=== PATIENT | male | born 1980 | race Caucasian/White ===

== ENCOUNTER → 2016-02-25 | Outpatient (CLI) | payer MEDICARE, OTHER ==
--- NOTE | 2016-02-25 21:28 | MR ---
EXAMINATION TYPE: MR cervical spine wo con DATE OF EXAM: 02/25/2016 6:41 PM COMPARISON: 05/02/2014 HISTORY: Pain T1 sagittal and coronal, T2 sagittal, and gradient echo axial views of the cervical spine are submitt ed. The cranial cervical junction is preserved. There is no abnormal signal seen within the spinal cord or paraspinal soft tissues. Changes of chronic sinusitis noted. At C2-3 there is no disc herniation or canal stenosis. No foraminal encroachment. At C3-4 there is no disc herniation or canal stenosis. No foraminal encroachment. Very mild left-side d uncovertebral joint hypertrophy. At C4-5 there is mild bilateral uncovertebral joint hypertrophy with no foraminal encroachment. No di sc herniation or canal stenosis. At C5-6 there is no degenerative disc disease or disc herniation. No canal stenosis or foraminal encr oachment. At C6-7 there is broad-based central and left paracentral disc bulging with very mild effacement of t hecal sac but no canal stenosis. No foraminal encroachment. At C7-T1 there is no disc herniation or canal stenosis. No foraminal encroachment IMPRESSION: 1. At C6-7 there is broad-based central and left paracentral disc bulging with very mild effacement of thecal sac but no canal stenosis. No foraminal encroachment. EXAMINATION TYPE: MR cspine/lspine wo con DATE OF EXAM: 02/25/2016 6:41 PM COMPARISON: NONE HISTORY: Pain TECHNIQUE: T1 and T2 axial and sagittal images of the lumbar spine are submitted. FINDINGS: There is no abnormal signal seen within the visualized spinal cord or paraspinal soft tissu es. At L1-2 there is no disc herniation or canal stenosis. No degenerative disc disease or foraminal encr oachment. At L2-3 there is no disc herniation or canal stenosis. No foraminal encroachment. At L3-4 there is right lateral disc bulging with mild to moderate right-sided foraminal encroachment. Mild hypertrophic change of the facets. At L4-5 there is no disc herniation or canal stenosis. No foraminal encroachment.. Mild facet arthrop athy. At L5-S1 there is no disc herniation or canal stenosis. No foraminal encroachment. Mild facet arthrop athy seen.. IMPRESSION: 1. At L3-4 there is right lateral disc bulging with mild to moderate right-sided foraminal encroachme nt. Correlate for right-sided radiculopathy at this level.
--- NOTE | 2016-02-25 21:28 | MR ---
EXAMINATION TYPE: MR brain wo con DATE OF EXAM: 02/25/2016 6:08 PM COMPARISON: CT brain 05/02/2014, MRI brain 11/14/2012 HISTORY: Headaches T1-weighted sagittal, T2, FLAIR, and diffusion axial, and T2 coronal coronal views of the brain are s ubmitted. There is no evidence of acute ischemia. The ventricles, basal cisterns, and sulci overlying the conv exities are consistent with the patient's age. There is no mass effect. Craniocervical junction maintained. Sella turcica has a normal appearance. No evidence to suggest cer ebellopontine angle mass. There is severe changes of ethmoidal and maxillary chronic sinusitis. Previously noted sebaceous cyst overlying the left facial structures no longer identified. There are 2 focal areas of abnormal signal within the white matter measuring less than 5 mm. No callo sabrina lesions. No lesions perpendicular to the ventricular system. Findings of doubtful significance. IMPRESSION: 1. No acute intracranial process. 2. Severe maxillary and ethmoidal chronic sinusitis.
== END | disposition home or self-care (01) ==
LOC: RADMRIMAIN 17:29
PROVIDERS: ATTEND Nurse Practitioner Acute Care
DX: M50.223 Other cervical disc displacement at C6-C7 level (principal); M51.26 Other intervertebral disc displacement, lumbar region; J32.0 Chronic maxillary sinusitis; J32.2 Chronic ethmoidal sinusitis
CPT/HCPCS: 70551; 72141; 72148

== ENCOUNTER → 2017-05-09 | Outpatient (CLI) | payer MEDICARE, OTHER ==
--- NOTE | 2017-05-09 23:14 | MR ---
EXAMINATION TYPE: MR brain wo con DATE OF EXAM: 05/09/2017 COMPARISON: 02/25/2016 HISTORY: Prior on synapse, migraines and dizziness Standard multiplanar, multisequence MRI departmental protocol Multiplanar, multisequence images of the brain were acquired. Diffusion weighted imaging was performe d. FINDINGS: Ventricles and sulci appear normal. There is no mass effect nor midline shift. There is no sign of intracranial hemorrhage. There is mild mucosal thickening in the maxillary and ethmoid sinuse s. Artis-white matter structures have normal signal pattern. There is no evidence of cerebral edema. T here is no sign of a cortical infarct. Brainstem appears normal. Corpus callosum is normal. Sella tur cica is normal. IMPRESSION: Normal MRI scan of the brain. There is significant improvement in the maxillary and ethmoid sinusitis compared to old exam.
== END | disposition home or self-care (01) ==
LOC: RADMRIMAIN 21:04
PROVIDERS: ATTEND Psychiatry & Neurology Neurology
DX: R51 Headache (principal); R90.82 White matter disease, unspecified
CPT/HCPCS: 70551

== ENCOUNTER 2018-05-16 14:14 | Emergency (ER) | payer MEDICARE, OTHER ==
[2018-05-16 14:18] VITALS: RESP 18
[2018-05-16 16:32] LABS: Amphetamine Screen,Urine Not Detected (NotDetected); Cocaine Screen,Urine Not Detected (NotDetected); Opiate Screen,Urine Not Detected (NotDetected); Phencyclidine Screen,Urine Not Detected (NotDetected); Urn Cannabinoid Scrn Detected (NotDetected)
[2018-05-16 16:33] LABS: Barbiturate Screen,Urine Not Detected (NotDetected); Benzodiazepines Screen,Urine Detected (NotDetected); Methadone Screen, Urine Not Detected (NotDetected); Oxycodone Screen, Urine Not Detected (NotDetected); Tricyclic Antidepressant,Urine Not Detected (NotDetected)
--- NOTE | 2018-05-16 16:44 | ED ---
General Adult HPI - General Chief complaint: Psychiatric Symptoms Stated complaint: mental health Time Seen by Provider: 05/16/18 14:35 Source: patient Mode of arrival: ambulatory Limitations: no limitations - History of Present Illness Initial comments: 37-year-old male presents to the emergency department for a chief complaint of depression. Patient states his left him about one month ago and he has had difficulty dealing with this. Patient states he has been depressed since that time. He is denying any suicidal thoughts. Patient states he would like to be admitted to [facility]. Patient has no other complaints at this time including shortness of breath, chest pain, abdominal pain, nausea or vomiting, headache, or visual changes. - Related Data Home Medications Medication Instructions Recorded Confirmed SUMAtriptan SUCCINATE [Imitrex] 100 mg PO DAILY PRN 06/19/13 05/16/18 ARIPiprazole [Abilify] 15 mg PO DAILY 05/16/18 05/16/18 Divalproex ER [Depakote ER] 500 mg PO BID 05/16/18 05/16/18 Divalproex Sodium [Depakote ER] 250 mg PO HS 05/16/18 05/16/18 Galcanezumab-Gnlm [Emgality] 120 mg SQ Q30D 05/16/18 05/16/18 LORazepam [Ativan] 1 mg PO TID PRN 05/16/18 05/16/18 Mirtazapine [Remeron] 30 mg PO HS 05/16/18 05/16/18 Naproxen 500 mg PO BID PRN 05/16/18 05/16/18 Zonisamide [Zonegran] 200 mg PO HS 05/16/18 05/16/18 cloNIDine HCL [Catapres] 0.2 mg PO HS 05/16/18 05/16/18 Allergies Allergy/AdvReac Type Severity Reaction Status Date / Time No Known Allergies Allergy Verified 05/16/18 14:18 Review of Systems ROS Statement: Those systems with pertinent positive or pertinent negative responses have been documented in the HPI. ROS Other: All systems not noted in ROS Statement are negative. Past Medical History Past Medical History: Hyperlipidemia, Hypertension Additional Past Medical History / Comment(s): migraine, bipolar disorder History of Any Multi-Drug Resistant Organisms: None Reported Additional Past Surgical History / Comment(s): TRAUMA TO THROAT, REPAIR COMPLETED Past Psychological History: Anxiety, Bipolar Smoking Status: Current every day smoker Past Alcohol Use History: None Reported Past Drug Use History: Marijuana General Exam Limitations: no limitations General appearance: alert, in no apparent distress (Tearful) Head exam: Present: atraumatic, normocephalic, normal inspection Eye exam: Present: normal appearance, PERRL, EOMI. Absent: scleral icterus, conjunctival injection, periorbital swelling ENT exam: Present: normal exam, mucous membranes moist Neck exam: Present: normal inspection, full ROM. Absent: tenderness, meningismus, lymphadenopathy Respiratory exam: Present: normal lung sounds bilaterally. Absent: respiratory distress, wheezes, rales, rhonchi, stridor Cardiovascular Exam: Present: regular rate, normal rhythm, normal heart sounds. Absent: bradycardia, tachycardia, irregular rhythm GI/Abdominal exam: Present: soft, normal bowel sounds. Absent: distended, tenderness, guarding, rebound, rigid Neurological exam: Present: alert, oriented X3, CN II-XII intact Psychiatric exam: Present: normal affect, normal mood. Absent: homicidal ideation, suicidal ideation Course Vital Signs 05/16/18 14:15 Temperature 98.5 F Pulse Rate 90 Respiratory 18 Rate Blood Pressure 151/93 O2 Sat by Pulse 98 Oximetry Medical Decision Making - Medical Decision Making 37-year-old male with past medical history of bipolar disorder, depression presents to the emergency department for depression. Patient states his left him last month. He is denying any suicidal thoughts. EPS did see patient and recommend outpatient therapy. Patient did just see his therapist yesterday. States he can see her another time this week as well. Patient reevaluated, feeling much better, sitting up and smiling. Requesting discharge. Patient again denying suicidal thoughts at discharge. Patient will be discharged home. He will return here if he has any worsening symptoms. Resources were given to him by EPS. - Lab Data Lab Results 05/16/18 Range/Units 16:05 Urine Opiates Screen Not Detected (NotDetected) Ur Oxycodone Screen Not Detected (NotDetected) Urine Methadone Screen Not Detected (NotDetected) Ur Propoxyphene Screen Not Detected (NotDetected) Ur Barbiturates Screen Not Detected (NotDetected) U Tricyclic Antidepress Not Detected (NotDetected) Ur Phencyclidine Scrn Not Detected (NotDetected) Ur Amphetamines Screen Not Detected (NotDetected) U Methamphetamines Scrn Not Detected (NotDetected) U Benzodiazepines Scrn Detected H (NotDetected) Urine Cocaine Screen Not Detected (NotDetected) U Marijuana (THC) Screen Detected H (NotDetected) Disposition Clinical Impression: Adjustment reaction, Depression Disposition: HOME SELF-CARE Condition: Good Instructions (If sedation given, give patient instructions): Depression (ED) Additional Instructions: Please follow-up with your therapist as well as primary care tomorrow. please return here to the emergency department if you have any worsening symptoms. Is patient prescribed a controlled substance at d/c from ED?: No Referrals: Shagufta Aaron MD [Primary Care Provider] - 1-2 days Time of Disposition: 20:11
[2018-05-16 20:30] VITALS: BP 122/76; PULSE 72; TEMP 98
== END 2018-05-16 20:30 | disposition home or self-care (01) ==
LOC: EC 14:14
DX: F43.21 Adjustment disorder with depressed mood (principal); F31.9 Bipolar disorder, unspecified; I10 Essential (primary) hypertension; F41.9 Anxiety disorder, unspecified; F17.200 Nicotine dependence, unspecified, uncomplicated; Z79.899 Other long term (current) drug therapy; Z86.69 Personal history of other diseases of the nervous system and sense organs
CPT/HCPCS: 80306; 99284

== ENCOUNTER 2018-06-03 12:56 | Inpatient (IN) | payer MEDICARE, MEDICAID ==
[2018-06-03 14:21] LABS: Amphetamine Screen,Urine Not Detected (NotDetected); Barbiturate Screen,Urine Not Detected (NotDetected); Benzodiazepines Screen,Urine Detected (NotDetected); Cocaine Screen,Urine Not Detected (NotDetected); Methadone Screen, Urine Not Detected (NotDetected); Opiate Screen,Urine Not Detected (NotDetected); Oxycodone Screen, Urine Not Detected (NotDetected); Phencyclidine Screen,Urine Not Detected (NotDetected); Tricyclic Antidepressant,Urine Not Detected (NotDetected); Urn Cannabinoid Scrn Detected (NotDetected)
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
[2018-06-03] MEDS ORDERED: ZIPRASIDONE 20 MG VIAL IM PRN (17:17)
[2018-06-03] MEDS ORDERED: MAGNESIUM HYDROXIDE 2,400 MG/10 ML CUP PO PRN (17:17)
[2018-06-03] MEDS ORDERED: ACETAMINOPHEN TAB 325 MG TAB PO PRN (17:17)
[2018-06-03] MEDS ORDERED: MAG HYDROX/AL HYDROX/SIMETH 30 ML CUP PO PRN (17:17)
[2018-06-03] MEDS: NICOTINE 14MG/24HR PATCH TRANSDERM SCH (17:54)
[2018-06-03] MEDS ORDERED: cloNIDine HCL 0.2 MG TAB PO SCH (21:00)
[2018-06-03] MEDS: ZONISAMIDE 100 MG CAP PO SCH (21:09)
[2018-06-03] MEDS: DIVALPROEX ER 250 MG TAB.ER.24H PO SCH (21:10)
[2018-06-03] MEDS: MIRTAZAPINE 45 MG TABLET PO SCH (21:10)
[2018-06-03] MEDS: DIVALPROEX ER 500 MG TAB.ER.24H PO SCH (21:10)
[2018-06-04] MEDS: DIVALPROEX ER 500 MG TAB.ER.24H PO SCH ×2 (08:49→20:55)
[2018-06-04] MEDS: NICOTINE 14MG/24HR PATCH TRANSDERM SCH (08:50)
[2018-06-04 11:23] LABS: Basophils % (A) 1 %; Eosinophils # (A) 0.1 k/uL (0-0.7); Eosinophils % (A) 1 %; HCT 43.9 % (39.0-53.0); HGB 14.3 gm/dL (13.0-17.5); Lymphocytes # (A) 1.5 k/uL (1.0-4.8); Lymphocytes % (A) 17 %; MCH 29.1 pg (25.0-35.0); MCHC 32.5 g/dL (31.0-37.0); MCV 89.6 fL (80.0-100.0); Mean Platelet Volume 8.3; Monocytes # (A) 0.4 k/uL (0-1.0); Monocytes % (A) 5 %; Neutrophils # (A) 6.8 k/uL (1.3-7.7); Neutrophils % (A) 77 %; Platelet Count 255 k/uL (150-450); WBC 8.9 k/uL (3.8-10.6)
[2018-06-04 11:32] LABS: ALT 21 U/L (21-72); AST 17 U/L (17-59); Albumin 4.9 g/dL (3.5-5.0); Alkaline Phosphatase 43 U/L (38-126); Anion Gap 11 mmol/L; Blood Urea Nitrogen 22 mg/dL (9-20); Carbon Dioxide 21 mmol/L (22-30); Chloride 112 mmol/L (98-107); Cholesterol 138 mg/dL (<200); Glucose 86 mg/dL (74-99); HDL Cholesterol 33 mg/dL (40-60); LDL Cholesterol,Calculated 86 mg/dL (0-99); Potassium 4.5 mmol/L (3.5-5.1); Sodium 144 mmol/L (137-145); Total Bilirubin 0.6 mg/dL (0.2-1.3); Total Protein 7.4 g/dL (6.3-8.2); Triglycerides 97 mg/dL (<150)
[2018-06-04 11:37] LABS: Valproic Acid (Depakene) 56.1 ug/mL
[2018-06-04 12:26] VITALS: BMI 22.8
--- NOTE | 2018-06-04 14:50 | P.CONS ---
History of Present Illness - Reason for Consult Recommendations regarding antihypertensive medications - History of Present Illness 37-year-old is admitted to psychiatric floor because of suicidal ideation and was depressed. Patient denied any fever chills nausea vomiting abdominal pain dysuria cough runny nose diarrhea. Patient denies any medical problems although as per the history patient has history of hypertension and is on clonidine at nighttime which will be discontinued and will be monitored, as per the chart patient also has history of hyperlipidemia but his LDL is 86. Review of Systems REVIEW OF SYSTEMS: CONSTITUTIONAL: No fever, no malaise, no fatigue. HEENT: No recent visual problems or hearing problems. Denied any sore throat. CARDIOVASCULAR: No chest pain, orthopnea, PND, no palpitations, no syncope. PULMONARY: No shortness of breath, no cough, no hemoptysis. GASTROINTESTINAL: No diarrhea, no nausea, no vomiting, no abdominal pain. NEUROLOGICAL: No headaches, no weakness, no numbness. HEMATOLOGICAL: Denies any bleeding or petechiae. GENITOURINARY: Denies any burning micturition, frequency, or urgency. MUSCULOSKELETAL/RHEUMATOLOGICAL: Denies any joint pain, swelling, or any muscle pain. ENDOCRINE: Denies any polyuria or polydipsia. The rest of the 14-point review of systems is negative. Past Medical History Past Medical History: Hyperlipidemia, Hypertension Additional Past Medical History / Comment(s): migraine History of Any Multi-Drug Resistant Organisms: None Reported Additional Past Surgical History / Comment(s): TRAUMA TO THROAT, REPAIR COMPLETED Past Psychological History: Anxiety, Bipolar Smoking Status: Current every day smoker Past Alcohol Use History: None Reported Past Drug Use History: Marijuana Additional Drug Use History / Comment(s): marijuana currently, a few times a week Medications and Allergies Home Medications Medication Instructions Recorded Confirmed Type Divalproex ER [Depakote ER] 500 mg PO BID 05/16/18 06/03/18 History Divalproex Sodium [Depakote ER] 250 mg PO HS 05/16/18 06/03/18 History LORazepam [Ativan] 1 mg PO TID PRN 05/16/18 06/03/18 History Naproxen 500 mg PO BID PRN 05/16/18 06/03/18 History Zonisamide [Zonegran] 200 mg PO HS 05/16/18 06/03/18 History cloNIDine HCL [Catapres] 0.2 mg PO HS 05/16/18 06/03/18 History ARIPiprazole [Abilify] 20 mg PO DAILY 06/03/18 06/03/18 History Galcanezumab-Gnlm [Emgality] 120 mg SQ Q30D 06/03/18 06/03/18 History Mirtazapine [Remeron] 45 mg PO HS 06/03/18 06/03/18 History SUMAtriptan SUCCINATE [Imitrex] 100 mg PO Q12H PRN 06/03/18 06/03/18 History Allergies Allergy/AdvReac Type Severity Reaction Status Date / Time No Known Allergies Allergy Verified 06/03/18 13:50 Physical Exam Vitals: Vital Signs Temp Pulse Pulse Resp BP BP Pulse Ox 06/04/18 07:05 98.9 F 71 16 109/57 06/03/18 18:30 98.4 F 69 16 134/79 06/03/18 17:05 97.9 F 78 16 127/62 98 Intake and Output 06/03/18 06/04/18 06/04/18 22:59 06:59 14:59 Other: Weight 76.521 kg PHYSICAL EXAMINATION: GENERAL: The patient is alert and oriented x3, not in any acute distress. Well developed, well nourished. HEENT: Pupils are round and equally reacting to light. EOMI. No scleral icterus. No conjunctival pallor. Normocephalic, atraumatic. No pharyngeal erythema. No thyromegaly. CARDIOVASCULAR: S1 and S2 present. No murmurs, rubs, or gallops. PULMONARY: Chest is clear to auscultation, no wheezing or crackles. ABDOMEN: Soft, nontender, nondistended, normoactive bowel sounds. No palpable organomegaly. MUSCULOSKELETAL: No joint swelling or deformity. EXTREMITIES: No cyanosis, clubbing, or pedal edema. NEUROLOGICAL: Gross neurological examination did not reveal any focal deficits. SKIN: No rashes. Results CBC & Chem 7: 06/04/18 10:37 06/04/18 10:37 Labs: Abnormal Lab Results - Last 24 Hours (Table) 06/04/18 Range/Units 10:37 Chloride 112 H (98-107) mmol/L Carbon Dioxide 21 L (22-30) mmol/L BUN 22 H (9-20) mg/dL HDL Cholesterol 33 L (40-60) mg/dL Assessment and Plan Plan: -Major depression and suicidal ideation: Management as per primary service -Questionlable hypertension my suspicion is low that patient has essential hypertension clonidine will be discontinued and patient was monitored. -Hyperlipidemia: No evidence of hyperlipidemia LDL is within normal limits at is 86. Status will not be initiated -Nicotine abuse: Counseling was provided Thank you for letting refer to spread and patient's care will sign off at this time call us back if needed with any questions.
[2018-06-04] MEDS: LORazepam 1 MG TAB PO PRN (15:42)
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
[2018-06-04 18:32] LABS: Hemoglobin A1C 5.4 % (4.0-6.0)
[2018-06-04] MEDS: DIVALPROEX ER 250 MG TAB.ER.24H PO SCH (20:54)
[2018-06-04] MEDS: MIRTAZAPINE 45 MG TABLET PO SCH (20:55)
[2018-06-04] MEDS: ZONISAMIDE 100 MG CAP PO SCH (20:55)
[2018-06-05] MEDS: DIVALPROEX ER 500 MG TAB.ER.24H PO SCH ×2 (08:29→21:01)
[2018-06-05] MEDS: NICOTINE 14MG/24HR PATCH TRANSDERM SCH (08:30)
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
[2018-06-05] MEDS: LORazepam 1 MG TAB PO PRN (15:08)
[2018-06-05] MEDS: DIVALPROEX ER 250 MG TAB.ER.24H PO SCH (21:01)
[2018-06-05] MEDS: MIRTAZAPINE 45 MG TABLET PO SCH (21:01)
[2018-06-05] MEDS: ZONISAMIDE 100 MG CAP PO SCH (21:02)
[2018-06-06] MEDS: DIVALPROEX ER 250 MG TAB.ER.24H PO SCH ×2 (08:17→20:47)
[2018-06-06] MEDS: NICOTINE 14MG/24HR PATCH TRANSDERM SCH (08:18)
[2018-06-06] MEDS: DIVALPROEX ER 500 MG TAB.ER.24H PO SCH ×2 (08:18→20:48)
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
[2018-06-06] MEDS: LORazepam 1 MG TAB PO PRN (18:49)
[2018-06-06] MEDS: ZONISAMIDE 100 MG CAP PO SCH (20:47)
[2018-06-06] MEDS: MIRTAZAPINE 45 MG TABLET PO SCH (20:47)
[2018-06-07 07:03] VITALS: BP 128/68; PULSE 67; RESP 14; TEMP 98.5
[2018-06-07] MEDS: DIVALPROEX ER 500 MG TAB.ER.24H PO SCH (08:22)
[2018-06-07] MEDS: DIVALPROEX ER 250 MG TAB.ER.24H PO SCH (08:22)
[2018-06-07] MEDS: NICOTINE 14MG/24HR PATCH TRANSDERM SCH (08:22)
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
== END 2018-06-07 13:13 | disposition home or self-care (01) | DRG 885 ==
LOC: EC 12:56 → 3MHU 16:33
PROVIDERS: ADMIT Psychiatry & Neurology Psychiatry; ATTEND Psychiatry & Neurology Psychiatry
DX: F33.9 Major depressive disorder, recurrent, unspecified (principal); R45.851 Suicidal ideations; F17.200 Nicotine dependence, unspecified, uncomplicated; F43.10 Post-traumatic stress disorder, unspecified; F43.23 Adjustment disorder with mixed anxiety and depressed mood; G43.909 Migraine, unspecified, not intractable, without status migrainosus; F41.9 Anxiety disorder, unspecified; Z79.899 Other long term (current) drug therapy; Z71.6 Tobacco abuse counseling
CPT/HCPCS: 80053; 80061; 80164; 80165; 80306; 82075; 83036; 84439; 84443; 85025; 99285

== ENCOUNTER 2020-12-17 12:34 | Inpatient (IN) | payer MEDICARE, MEDICAID ==
[2020-12-17 16:34] LABS: Amphetamine Screen,Urine Not Detected (NotDetected); Barbiturate Screen,Urine Not Detected (NotDetected); Benzodiazepines Screen,Urine Not Detected (NotDetected); Cocaine Screen,Urine Not Detected (NotDetected); Methadone Screen, Urine Not Detected (NotDetected); Opiate Screen,Urine Not Detected (NotDetected); Oxycodone Screen, Urine Not Detected (NotDetected); Phencyclidine Screen,Urine Not Detected (NotDetected); Tricyclic Antidepressant,Urine Not Detected (NotDetected); Urn Cannabinoid Scrn Detected (NotDetected)
--- NOTE | 2020-12-17 16:37 | ED ---
Psych HPI - General Chief Complaint: Psychiatric Symptoms Stated Complaint: Mental health Time Seen by Provider: 12/17/20 13:41 Source: patient, RN notes reviewed, old records reviewed Mode of arrival: ambulatory Limitations: no limitations - History of Present Illness Initial Comments: Patient is a 32-year-old male presenting to the emergency department for psychiatric evaluation. Patient states he has a history of depression and feeling symptoms have been worsening over the past couple weeks. He was on psychiatric medications but stopped taking them about 2 months ago, he states he didn't feel like they're working anymore. He is having suicidal thoughts, no plans. He states he does not want his symptoms to get any worse he came in for evaluation. He denies any fevers or chills, no chest pain or short of breath. He has no further complaints today. - Related Data Home Medications Medication Instructions Recorded Confirmed Naproxen 500 mg PO BID PRN 05/16/18 12/17/20 Galcanezumab-Gnlm [Emgality Pen] 120 mg SQ Q30D 06/03/18 12/17/20 SUMAtriptan SUCCINATE [Imitrex] 100 mg PO Q12H PRN 06/03/18 12/17/20 ARIPiprazole [Abilify] 5 mg PO DAILY 12/17/20 12/17/20 ARIPiprazole [Abilify] 20 mg PO HS 12/17/20 12/17/20 LORazepam [Ativan] 1 mg PO BID PRN 12/17/20 12/17/20 Allergies Allergy/AdvReac Type Severity Reaction Status Date / Time No Known Allergies Allergy Verified 12/17/20 14:20 Review of Systems ROS Statement: Those systems with pertinent positive or pertinent negative responses have been documented in the HPI. ROS Other: All systems not noted in ROS Statement are negative. Past Medical History Past Medical History: Hyperlipidemia, Hypertension Additional Past Medical History / Comment(s): migraine History of Any Multi-Drug Resistant Organisms: None Reported Additional Past Surgical History / Comment(s): TRAUMA TO THROAT, REPAIR COMPLETED Past Psychological History: Anxiety, Bipolar Smoking Status: Current every day smoker Past Alcohol Use History: None Reported Past Drug Use History: Marijuana General Exam - General Exam Comments Initial Comments: GENERAL: Patient is well-developed and well-nourished. Patient is nontoxic and in no acute distress. HEAD: Atraumatic, normocephalic. EYES: Pupils equal round and reactive to light, extraocular movements intact, sclera anicteric, conjunctiva are normal. Eyelids were unremarkable. ENT: Moist mucous membranes. NECK: Normal range of motion, supple without lymphadenopathy or JVD. LUNGS: Unlabored respirations. Breath sounds clear to auscultation bilaterally and equal. No wheezes rales or rhonchi. HEART: Regular rate and rhythm without murmurs, rubs or gallops. ABDOMEN: Soft, nontender, normoactive bowel sounds. No guarding, no rebound. No masses appreciated. MUSCULOSKELETAL: Normal extremities with adequate strength and normal range of motion, no pitting or edema. No clubbing or cyanosis. NEUROLOGICAL: Patient is alert and oriented x 3. PSYCH: Normal mood, normal affect. SKIN: Warm, Dry, normal turgor, no rashes or lesions noted. Limitations: no limitations Course Vital Signs 12/17/20 13:36 Temperature 98.8 F Pulse Rate 77 Respiratory 18 Rate Blood Pressure 141/84 O2 Sat by Pulse 98 Oximetry Medical Decision Making - Medical Decision Making Patient is a 32-year-old male here for psychiatric evaluation. He has been depressed and worsening symptoms over the past couple weeks. He stopped taking all his medications 2 months ago. He is having suicidal thoughts, no specific plans. Patient was evaluated by EPS and patient will be admitted for inpatient psychiatric treatment. He is agreeable to this plan of care. - Lab Data Lab Results 12/17/20 Range/Units 16:06 Urine Opiates Screen Not Detected (NotDetected) Ur Oxycodone Screen Not Detected (NotDetected) Urine Methadone Screen Not Detected (NotDetected) Ur Propoxyphene Screen Not Detected (NotDetected) Ur Barbiturates Screen Not Detected (NotDetected) U Tricyclic Antidepress Not Detected (NotDetected) Ur Phencyclidine Scrn Not Detected (NotDetected) Ur Amphetamines Screen Not Detected (NotDetected) U Methamphetamines Scrn Not Detected (NotDetected) U Benzodiazepines Scrn Not Detected (NotDetected) Urine Cocaine Screen Not Detected (NotDetected) U Marijuana (THC) Screen Detected H (NotDetected) Disposition Clinical Impression: Suicidal ideation, Depression Disposition: TRANSFER TO PSYCH HOSP/UNIT Condition: Stable Is patient prescribed a controlled substance at d/c from ED?: No Referrals: Shagufta Aaron MD [Primary Care Provider] - 1-2 days Decision Date: 12/17/20 Decision Time: 16:37
[2020-12-17] MEDS ORDERED: ACETAMINOPHEN TAB 325 MG TAB PO PRN (18:19)
[2020-12-17] MEDS ORDERED: MAGNESIUM HYDROXIDE 2,400 MG/10 ML CUP PO PRN (18:19)
[2020-12-17] MEDS ORDERED: MAG HYDROX/AL HYDROX/SIMETH 30 ML CUP PO PRN (18:19)
[2020-12-17] MEDS ORDERED: HALOPERIDOL LACTATE 5 MG/ML 1 ML VIAL IM PRN (18:24)
[2020-12-17] MEDS ORDERED: LORazepam 2 MG/ML INJ IM PRN (18:24)
[2020-12-17] MEDS ORDERED: haloperidoL 5 MG TAB PO PRN (18:26)
[2020-12-17] MEDS: LORazepam 1 MG TAB PO PRN (20:51)
[2020-12-18 07:13] VITALS: RESP 16
[2020-12-18] MEDS: NICOTINE 14MG/24HR PATCH TRANSDERM SCH (08:01)
[2020-12-18 08:37] LABS: Basophils # (A) 0.1 k/uL (0-0.2); Basophils % (A) 1 %; Eosinophils # (A) 0.1 k/uL (0-0.7); Eosinophils % (A) 1 %; HCT 46.8 % (39.0-53.0); HGB 15.1 gm/dL (13.0-17.5); Lymphocytes # (A) 1.9 k/uL (1.0-4.8); Lymphocytes % (A) 16 %; MCH 29.4 pg (25.0-35.0); MCHC 32.4 g/dL (31.0-37.0); Mean Platelet Volume 8.1; Monocytes # (A) 0.5 k/uL (0-1.0); Monocytes % (A) 5 %; Neutrophils # (A) 8.6 k/uL (1.3-7.7); Neutrophils % (A) 77 %; Platelet Count 268 k/uL (150-450); RBC 5.14 m/uL (4.30-5.90); RDW 13.6 % (11.5-15.5); WBC 11.3 k/uL (3.8-10.6)
[2020-12-18 08:39] LABS: ALT 21 U/L (4-49); AST 26 U/L (17-59); African American GFR (CKD) >90 (>60 ml/min/1.73 sqM); Albumin 3.9 g/dL (3.5-5.0); Alkaline Phosphatase 39 U/L (38-126); Anion Gap 6 mmol/L; Blood Urea Nitrogen 10 mg/dL (9-20); Calcium 9.7 mg/dL (8.4-10.2); Carbon Dioxide 28 mmol/L (22-30); Chloride 106 mmol/L (98-107); Glucose 88 mg/dL (74-99); Non-African American GFR(CKD) >90 (>60 ml/min/1.73 sqM); Potassium 4.5 mmol/L (3.5-5.1); Sodium 140 mmol/L (137-145); Total Bilirubin 0.6 mg/dL (0.2-1.3); Total Protein 6.4 g/dL (6.3-8.2)
--- NOTE | 2020-12-18 13:09 | P.HP ---
Psychiatric H&P - . H&P Date: 12/18/20 History & Physical: Allergies Allergy/AdvReac Type Severity Reaction Status Date / Time No Known Allergies Allergy Verified 12/17/20 19:13 Vital Signs Temp 97.3 F L 12/18/20 07:06 Pulse 62 12/18/20 07:06 Resp 16 12/18/20 07:06 BP 106/58 12/18/20 07:06 Pulse Ox 99 12/17/20 18:46 Intake & Output 12/17/20 12/18/20 12/18/20 18:59 06:59 18:59 Weight 86.183 kg 86.183 kg Laboratory Last Values WBC 11.3 k/uL (3.8-10.6) H 12/18/20 07:58 RBC 5.14 m/uL (4.30-5.90) 12/18/20 07:58 Hgb 15.1 gm/dL (13.0-17.5) 12/18/20 07:58 Hct 46.8 % (39.0-53.0) 12/18/20 07:58 MCV 91.0 fL (80.0-100.0) 12/18/20 07:58 MCH 29.4 pg (25.0-35.0) 12/18/20 07:58 MCHC 32.4 g/dL (31.0-37.0) 12/18/20 07:58 RDW 13.6 % (11.5-15.5) 12/18/20 07:58 Plt Count 268 k/uL (150-450) 12/18/20 07:58 MPV 8.1 12/18/20 07:58 Neutrophils % 77 % 12/18/20 07:58 Lymphocytes % 16 % 12/18/20 07:58 Monocytes % 5 % 12/18/20 07:58 Eosinophils % 1 % 12/18/20 07:58 Basophils % 1 % 12/18/20 07:58 Neutrophils # 8.6 k/uL (1.3-7.7) H 12/18/20 07:58 Lymphocytes # 1.9 k/uL (1.0-4.8) 12/18/20 07:58 Monocytes # 0.5 k/uL (0-1.0) 12/18/20 07:58 Eosinophils # 0.1 k/uL (0-0.7) 12/18/20 07:58 Basophils # 0.1 k/uL (0-0.2) 12/18/20 07:58 Sodium 140 mmol/L (137-145) 12/18/20 07:58 Potassium 4.5 mmol/L (3.5-5.1) 12/18/20 07:58 Chloride 106 mmol/L (98-107) 12/18/20 07:58 Carbon Dioxide 28 mmol/L (22-30) 12/18/20 07:58 Anion Gap 6 mmol/L 12/18/20 07:58 BUN 10 mg/dL (9-20) 12/18/20 07:58 Creatinine 1.05 mg/dL (0.66-1.25) 12/18/20 07:58 Est GFR (CKD-EPI)AfAm >90 (>60 ml/min/1.73 sqM) 12/18/20 07:58 Est GFR (CKD-EPI)NonAf >90 (>60 ml/min/1.73 sqM) 12/18/20 07:58 Glucose 88 mg/dL (74-99) 12/18/20 07:58 Calcium 9.7 mg/dL (8.4-10.2) 12/18/20 07:58 Total Bilirubin 0.6 mg/dL (0.2-1.3) 12/18/20 07:58 AST 26 U/L (17-59) 12/18/20 07:58 ALT 21 U/L (4-49) 12/18/20 07:58 Alkaline Phosphatase 39 U/L (38-126) 12/18/20 07:58 Total Protein 6.4 g/dL (6.3-8.2) 12/18/20 07:58 Albumin 3.9 g/dL (3.5-5.0) 12/18/20 07:58 TSH 1.250 mIU/L (0.465-4.680) 12/18/20 07:58 Urine Opiates Screen Not Detected (NotDetected) 12/17/20 16:06 Ur Oxycodone Screen Not Detected (NotDetected) 12/17/20 16:06 Urine Methadone Screen Not Detected (NotDetected) 12/17/20 16:06 Ur Propoxyphene Screen Not Detected (NotDetected) 12/17/20 16:06 Ur Barbiturates Screen Not Detected (NotDetected) 12/17/20 16:06 U Tricyclic Antidepress Not Detected (NotDetected) 12/17/20 16:06 Ur Phencyclidine Scrn Not Detected (NotDetected) 12/17/20 16:06 Ur Amphetamines Screen Not Detected (NotDetected) 12/17/20 16:06 U Methamphetamines Scrn Not Detected (NotDetected) 12/17/20 16:06 U Benzodiazepines Scrn Not Detected (NotDetected) 12/17/20 16:06 Urine Cocaine Screen Not Detected (NotDetected) 12/17/20 16:06 U Marijuana (THC) Screen Detected (NotDetected) H 12/17/20 16:06 Coronavirus (PCR) Not Detected (Not Detectd) 12/17/20 16:06 12/18/20 13:09 IDENTIFYING DATA: Patient is a , on Social Security disability, 40-year-old male presenting to the emergency department with a chief complaint of suicidal ideation context of medication nonadherence. HPI: Patient presented to the hospital on 12/17/20, with the chief complaint of suicidal ideation and auditory hallucinations. As per CPS report, the patient reported that he was hearing voices telling him to kill himself and that this happens every few years. He reports that he has been feeling increasingly depressed, anxious, and began expressing auditory hallucinations after he stopped his medications at least 3 months ago. He reports that he has noticed his mood has been been getting worse. He endorses significant symptoms of depression including feelings of hopelessness, helplessness, suicidal ideation, low energy despite staying in bed all day. Patient reports that auditory hallucinations that he has been hearing tell him not to take his medications. The patient reports prior attempts at suicide but states he did not attempt this time. He reports that he recognized that he was starting to have suicidal thoughts and that is why he came to the hospital. The patient does not endorse any significant symptoms of bipolar disorder. He otherwise does not report any visual hallucinations or other psychotic symptoms.. PAST PSYCHIATRIC HISTORY: Patient states that he has been previously diagnosed with depression. The patient is able to recall being Eduard prescribed Abilify, Ativan, Remeron, Depakote, Xanax, Klonopin. The patient was that he has been ho spitalized on this unit 3 times, with the last time being in 2016 and the time before that being in 2013. He reports that he is open with [facility] services for outpatient psychiatric care. The patient does report 3 prior suicide attempts, typically by overdose. PMH: Past Medical History: Hyperlipidemia, Hypertension Additional Past Medical History / Comment(s): migraine History of Any Multi-Drug Resistant Organisms: None Reported Additional Past Surgical History / Comment(s): TRAUMA TO THROAT, REPAIR COMPLETED Past Psychological History: Anxiety, Bipolar Smoking Status: Current every day smoker Past Alcohol Use History: None Reported Past Drug Use History: Marijuana ALLERGIES: NO KNOWN DRUG ALLERGIES CHEMICAL DEPENDENCY HISTORY: The patient reports that he had a previous problem with Klonopin, Xanax, Vicodin, and other opiate or benzodiazepine medications. He reports that he has been sober from these ever since the of his first child 10 years ago. He reports that he smokes 1 pack per day of tobacco. He uses marijuana every day. He denies any other illicit drug use or any alcohol use. FAMILY PSYCHIATRIC/SUBSTANCE USE HISTORY: No reported history SOCIAL HISTORY: Patient was born in [place] and raised in [place]. He is the youngest of 3 and has 2 brothers. He was for 2 years to his but in 2018. He has 3 children ages 8, 9, and 10 years old. He is currently receiving Social Security and disability. He reports an eighth grade education. MENTAL STATUS EXAM: General Appearance: Patient appears to be stated age is alert, directable, and attempts to cooperate. Patient appears to have poor hygiene and grooming. Behavior: Patient is seated without any agitated behavior. Psychomotor activity appears normal. Eye contact is appropriate. Speech: Patient's speech is fluent and nonpressured. Monotone. Mood/Affect: Patient reports their mood is depressed, affect is congruent and constricted. Suicidality/Homicidality: Patient denies having any homicidal ideation intent or plan. He is currently denying any suicidal ideation but reports it was present prior to coming to the hospital. Perceptions: Patient denies any visual hallucinations his endorse auditory hallucinations. Though content/process: There is no evidence of any delusional thought content and thought process is linear and goal-directed. Memory and concentration: AOX3, grossly intact for the purposes of this session. Can spell "WORLD" backwards Judgment and insight: Fair STRENGTHS/WEAKNESSES: Strength is that the patient has stable housing and income. Weakness is that the patient engages in heavy marijuana use and has had prior attempts at suicide. INTELLECT: average IMPRESSIONS: Major depressive disorder, recurrent, severe, with mood congruent psychotic features Cannabis use disorder Nicotine dependence PLAN: -Patient is admitted under voluntary status to [facility]HU for stabilization of psychiatric symptoms and safety. Patient signed adult voluntary form and medication consent and is placed in patient's chart. -Medications : Will start patient on Remeron 15 mg by mouth at bedtime for insomnia/appetite stimulation/depression Abilify 10 mg by mouth daily for mood augmentation/psychosis -Ativan and Haldol PRN for agitation/aggression -Patient was counselled on substance abuse and desired to cut back on use -Patient was informed of the risks, benefits and side effects of the medication and patient verbally consented to taking the medications. Patient signed med consent form and was placed in chart. -Internal Medicine consult to perform medical evaluation and physical. -NRT - nicotine patch -SW on board for discharge planning. Encourage patient to participate in groups to work on coping skills. 12/18/20 13:09
[2020-12-18] MEDS: LORazepam 1 MG TAB PO PRN (16:44)
[2020-12-18 17:19] LABS: Appearance,Urine Clear (Clear); Bilirubin,Urine Negative (Negative); Blood,Urine Negative (Negative); Color,Urine Yellow; Glucose,Urine (UA) Negative (Negative); Ketones,Urine Trace (Negative); Leukocyte Esterase,Urine Negative (Negative); Nitrite,Urine Negative (Negative); Protein,Urine Trace (Negative); Specific Gravity,Urine 1.028 (1.001-1.035); Urobilinogen,Urine <2.0 mg/dL (<2.0)
[2020-12-18 18:01] LABS: Chol/HDL Ratio 4.36 Ratio; LDL Cholesterol,Calculated 109.2 mg/dL (0.0-131.0); VLDL Calculation 17.18 mg/dL (5.00-40.00)
[2020-12-18] MEDS: ARIPiprazole 10 MG TAB PO SCH (21:02)
[2020-12-18] MEDS: MIRTAZAPINE 15 MG TAB PO SCH (21:02)
--- NOTE | 2020-12-18 23:45 | P.MDCNMH ---
History of Present Illness H&P Date: 12/18/20 Chief Complaint: Depression Patient is a 30-year-old man with known history of hypertension, hyperlipidemia currently not on any medications and also depression and everyday smoking, marijuana use presents to ER for psychiatric evaluation. Patient states that he has been feeling very depressed recently for the past couple of weeks and voluntarily came to ER for evaluation. Patient stopped taking his medications 2 months back. He is having suicidal thoughts but denied any having plans. Otherwise patient denied any complaints of chest pain or shortness breath. No fever no chills. Denies recent illnesses. No cough or sputum production. No headache or dizziness or lightheadedness. On admission blood pressure 141/84 pulse is 77 respiration 18 temperature afebrile pulse ox is 98% on room air Laboratory data showed WBC 11.3 hemoglobin 13.1 and platelets 268 and neutrophils 8.6 and other lab data reviewed. Zoe M. Ravinder elevated. TSH 1.250 and a UA negative for infection and UDS is positive for marijuana. COVID- 19 PCR not detected. Review of Systems Constitutional: Patient denies any fever or chills . No generalized weakness or weight loss. Abdomen: Patient denied nausea vomiting and diarrhea and abdominal pain. Cardiovascular: Patient denies any chest pain or short of breath no palpitations. Respiratory: patient denied any cough or sputum production. No shortness of breath Neurologic: Patient denied any numbness or tingling headache. Musculoskeletal: Patient denies any complaints of joint swelling or deformity. Skin: Negative Psychiatric: depressed Endocrine: No heat or cold intolerance. No recent weight gain. Genitourinary: No dysuria or hematuria. All other 14 point ROS negative except the above Past Medical History Past Medical History: Hyperlipidemia, Hypertension Additional Past Medical History / Comment(s): migraine History of Any Multi-Drug Resistant Organisms: None Reported Additional Past Surgical History / Comment(s): TRAUMA TO THROAT, REPAIR COMPLETED Smoking Status: Current every day smoker Medications and Allergies Home Medications Medication Instructions Recorded Confirmed Type Naproxen 500 mg PO BID PRN 05/16/18 12/17/20 History Galcanezumab-Gnlm [Emgality Pen] 120 mg SQ Q30D 06/03/18 12/17/20 History SUMAtriptan SUCCINATE [Imitrex] 100 mg PO Q12H PRN 06/03/18 12/17/20 History ARIPiprazole [Abilify] 5 mg PO DAILY 12/17/20 12/17/20 History ARIPiprazole [Abilify] 20 mg PO HS 12/17/20 12/17/20 History LORazepam [Ativan] 1 mg PO BID PRN 12/17/20 12/17/20 History Allergies Allergy/AdvReac Type Severity Reaction Status Date / Time No Known Allergies Allergy Verified 12/17/20 19:13 Physical Exam Vitals: Vital Signs Temp Pulse Resp BP 12/18/20 07:06 97.3 F L 62 16 106/58 PHYSICAL EXAMINATION: Patient is lying in the bed comfortably, no acute distress, awake alert and oriented.. HEENT: Normocephalic. Neck is supple. Pupils reactive. Nostrils clear. Oral cavity is moist. Neck reveals no JVD, carotid bruits, or thyromegaly. CHEST EXAMINATION: Trachea is central. Symmetrical expansion. Lung santos clear to auscultation and percussion. CARDIAC: Normal S1, S2 with no gallops. No murmurs ABDOMEN: Soft. Bowel sounds normal. No organomegaly. No abdominal bruits. Extremities: reveal no edema. No clubbing or cyanosis Neurologically awake, alert, oriented x3 with well-coordinated movements. No focal deficits noted Skin: No rash or skin lesions. Psychiatric: Cooperative. Nonsuicidal Musculoskeletal: No joint swelling or deformity. Normal range of motion. Cranial Nerve Examination - Cranial Nerves Cranial Nerve I- Olfactory: Intact Cranial Nerve II- Optic: Intact Cranial Nerve III- Oculomotor: Intact Cranial Nerve IV- Trochlear: Intact Cranial Nerve V- Trigeminal: Intact Cranial Nerve - Abducens: Intact Cranial Nerve VII- Facial: Intact Cranial Nerve VIII- Auditory: Intact Cranial Nerve IX- Glossopharyngeal: Intact Cranial Nerve X- Vagus: Intact Cranial Nerve XI- Accessory: Intact Cranial Nerve XII- Hypoglossal: Intact Results CBC & Chem 7: 12/18/20 07:58 12/18/20 07:58 Labs: Abnormal Lab Results - Last 24 Hours (Table) 12/18/20 12/18/20 12/18/20 Range/Units 07:58 07:58 Unknown WBC 11.3 H (3.8-10.6) k/uL Neutrophils # 8.6 H (1.3-7.7) k/uL HDL Cholesterol 37.60 L (40.00-60.00) mg/dL Urine Protein Trace H (Negative) Urine Ketones Trace H (Negative) Assessment and Plan Assessment: Major depression with suicidal ideation. Noncompliance medications. History of hypertension currently not on any medications at home. Hyperlipidemia with LDL 109.2 Daily marijuana use. DVT prophylaxis with early ambulation Plan: Patient will be continued on current psychiatric medications. Blood pressure is not elevated and does not need antihypertensives at this time. We will continue to follow with you and further recommendations based on clinical cours e. Thank you for your consult.
[2020-12-19] MEDS: NICOTINE 14MG/24HR PATCH TRANSDERM SCH (08:31)
[2020-12-19] MEDS ORDERED: SUMAtriptan succinate 25 MG TAB PO PRN (10:50)
--- NOTE | 2020-12-19 10:50 | P.PN ---
Progress Note - Text Progress Note Date: 12/19/20 Interval history: Patient was seen resting in bed and was directable and agreeable to speak with appeals writer. At this time patient denies any suicidal or homicidal ideations intent or plan. Denies any Auditory or visual hallucinations. Patient denies any side effects from the medications and has been compliant with meds. He does express experiencing some migraine headaches. He reports having these before even starting any psychotropic medications. He reports that he usually takes Imitrex for this. He is denying any issues regarding his sleep or his appetite. He reports that he is feeling overall better. He does express concern about discharge tomorrow stating that he would like another day in order to see how the medications with him. Mental status exam: General Appearance: Patient appears to be stated age is alert, directable, and cooperative. Behavior: No agitated behavior. Patient is calm and directable Speech: Patient's speech is fluent and nonpressured. Mood/Affect: Mood is improving mildly, affect is congruent and constricted. Suicidality/Homicidality: Patient denies having any suicidal or homicidal ideation intent or plan. Perceptions: Patient denies any auditory or visual hallucinations. Though content/process: There is no evidence of any delusional thought content and thought process is linear and goal-directed. Memory and concentration: AOX3, grossly intact for the purposes of this session Judgment and insight: improving mildly Assessment/Plan: Continue with current diagnosis. Patient continues to meet criteria for inpatient psychiatric admission for symptom stabilization and safety.Patient will be maintained on current psychotropic medication regimen except for the addition of Imitrex as needed for migraine headaches. Monitor for medication compliance and for any psychotropic medication side effects. Will continue to monitor ongoing response to treatment. Encouraged participation in milieu.
[2020-12-19] MEDS: ARIPiprazole 10 MG TAB PO SCH (20:52)
[2020-12-19] MEDS: MIRTAZAPINE 15 MG TAB PO SCH (20:52)
[2020-12-20 07:11] VITALS: BP 112/71; PULSE 66; TEMP 97.7
[2020-12-20] MEDS: NICOTINE 14MG/24HR PATCH TRANSDERM SCH (08:31)
--- NOTE | 2020-12-20 10:47 | P.DS ---
Providers Date of admission: 12/17/20 17:53 Expected date of discharge: 12/20/20 Attending physician: John Ernst MD Consults: 12/17/20 18:19 Consult Physician Routine Consulting Provider: Pattie Theodore Consult Reason/Comments: medical management Do you want consulting provider notified?: Yes Primary care physician: Shagufta Aaron - Discharge Diagnosis(es) (1) Major depressive disorder with psychotic features Current Visit: Yes Status: Acute Priority: High (2) Cannabis use disorder, mild, abuse Current Visit: Yes Status: Chronic Priority: Medium (3) Nicotine dependence Current Visit: Yes Status: Chronic Priority: Medium (4) Migraine Current Visit: Yes Status: Chronic Priority: Low Hospital Course: Admission HPI: Patient is a , on Social Security disability, 40-year-old male presenting to the emergency department with a chief complaint of suicidal ideation context of medication nonadherence. Patient presented to the hospital on 12/17/20, with the chief complaint of suicidal ideation and auditory hallucinations. As per CPS report, the patient reported that he was hearing voices telling him to kill himself and that this beck ppens every few years. He reports that he has been feeling increasingly depressed, anxious, and began expressing auditory hallucinations after he stopped his medications at least 3 months ago. He reports that he has noticed his mood has been been getting worse. He endorses significant symptoms of depression including feelings of hopelessness, helplessness, suicidal ideation, low energy despite staying in bed all day. Patient reports that auditory hallucinations that he has been hearing tell him not to take his medications. The patient reports prior attempts at suicide but states he did not attempt this time. He reports that he recognized that he was starting to have suicidal thoughts and that is why he came to the hospital. The patient does not endorse any significant symptoms of bipolar disorder. He otherwise does not report any visual hallucinations or other psychotic symptoms.. Patient states that he has been previously diagnosed with depression. The patient is able to recall being Eduard prescribed Abilify, Ativan, Remeron, Depakote, Xanax, Klonopin. The patient was that he has been hospitalized on this unit 3 times, with the last time being in 2015 and the time before that being in 2013. He reports that he is open with [facility] director social for outpatient psychiatric care. The patient does report 3 prior suicide attempts, typically by overdose. Hospital course: Upon admission to the unit patient was initially presenting with significant depression and mood congruent psychotic features auditory hallucinations. Patient was however directable and agreeable to commence treatment. Patient got along well with other patients on the unit and followed unit protocol. Patient was compliant with the medications and denied any side effects throughout hospital course. Patient was started on Remeron 15 mg for depression/insomnia/appetite and Abilify 10 mg daily for mood congruent psychotic features as well as to augment his antidepressant. Patient spoke of h is stressors and engaged in therapy both group and individual. Patient was also seen by medical team for history and physical exam. Throughout the course of the hospitalization patient gradually improved with regards to depression, anxiety, sleep and became future oriented with improved insight and judgment. On the day of discharge patient denied any suicidal or homicidal ideations intent or plan denied any auditory or visual hallucinations. Patient endorsed wanting to live for his health and his family. He reports that he misses his children a lot. The patient denied any access to guns or weapons. Patient denied any paranoia and did not endorse any delusions. Patient does have a significant history of substance abuse however was counseled on abstaining from all substances including alcohol and marijuana. Patient was offered however declined inpatient substance-abuse rehab. Patient was also counseled on the medications and need for regular compliance and was encouraged to follow-up with their outpatient appointment for mental health and also for primary care. Prior to discharge a family meeting will be arranged by director social to answer any questions and ensure safety upon discharge. Mental status exam: General Appearance: Patient appears to be stated age is alert, pleasant, and cooperative. Patient is in no acute distress and has fair hygiene and grooming Behavior: Patient is calmly seated without any agitated behavior. Speech: Patient's speech is fluent and nonpressured. Mood/Affect: Patient reports their mood is "much better", affect is congruent and euthymic. Suicidality/Homicidality: Patient denies having any suicidal or homicidal ideation intent or plan. Perceptions: Patient denies any auditory or visual hallucinations. Though content/process: There is no evidence of any delusional thought content and thought process is linear and goal-directed. more future oriented Memory and concentration: AOX3, grossly intact for the purposes of this session. Can spell "WORLD" backwards correctly. Judgment and insight: Improved Vital Signs Temp 97.7 F 12/20/20 07:06 Pulse 66 12/20/20 07:06 Resp 16 12/20/20 07:06 BP 112/71 12/20/20 07:06 Pulse Ox 99 12/17/20 18:46 Impression: Major depressive disorder, recurrent, severe, with mood congruent psychotic features Cannabis use disorder Nicotine dependence Migraine headaches Plan: -Continue with discharge today as patient has improved and stabilized psychiatrically and is not currently an imminent threat to himself and/or others. Patient will remain at chronically elevated risk but the general population due to a prior attempt at suicide. -Continue medications: Abilify 10 mg by mouth daily for depression/mood augmentation/psychotic features Remeron 15 mg at bedtime for depression/insomnia Imitrex for 7 days for migraine headaches -Patient was counseled on the need for medication compliance and appropriate follow-up at mental health and also primary care for medical issues. Patient verbalized understanding and agreed. -Social work to arrange for and conduct family meeting to ensure safety upon discharge and answer any questions/concerns. Social work also to arrange for patients follow up appointments for psychiatric care along with follow up with primary care provider. -Patient counseled on abstaining from recreational drugs and marijuana and alcohol. Was informed/educated on the adverse effects on their physical and mental health. Patient verbally agreed and understood. -Patient was instructed to return to the hospital or seek immediate medical care if their psychiatric or medical symptoms do worsen or reoccur. -Psychoeducation and supportive therapy provided to patient. Risks and benefits of pharmacological treatment versus the risks and benefits of nontreatment weight and discussed. Informed consent discussion held. Common side effects of psychotropics discussed such as, but not limited to headache, GI disturbance, sexual dysfunction, movement disorders, sedation, and orthostatic hypotension. Life threatening and blackbox warnings of prescribed medications also discussed. Potential risks of operating a vehicle or heavy machinery discussed with patient at length. Advised on importance of compliance and a reliable and responsible manner. Patient advised to review FDA consumer labeling of all medications prior to taking. Patient verbalized understanding of potential risks, and agrees with current treatment plan. Patient advised to medically contact physician/emergency personnel if any acute changes in condition occur. Allergies Allergy/AdvReac Type Severity Reaction Status Date / Time No Known Allergies Allergy Verified 12/17/20 19:13 Laboratory Results WBC 11.3 k/uL (3.8-10.6) H 12/18/20 07:58 RBC 5.14 m/uL (4.30-5.90) 12/18/20 07:58 Hgb 15.1 gm/dL (13.0-17.5) 12/18/20 07:58 Hct 46.8 % (39.0-53.0) 12/18/20 07:58 MCV 91.0 fL (80.0-100.0) 12/18/20 07:58 MCH 29.4 pg (25.0-35.0) 12/18/20 07:58 MCHC 32.4 g/dL (31.0-37.0) 12/18/20 07:58 RDW 13.6 % (11.5-15.5) 12/18/20 07:58 Plt Count 268 k/uL (150-450) 12/18/20 07:58 MPV 8.1 12/18/20 07:58 Neutrophils % 77 % 12/18/20 07:58 Lymphocytes % 16 % 12/18/20 07:58 Monocytes % 5 % 12/18/20 07:58 Eosinophils % 1 % 12/18/20 07:58 Basophils % 1 % 12/18/20 07:58 Neutrophils # 8.6 k/uL (1.3-7.7) H 12/18/20 07:58 Lymphocytes # 1.9 k/uL (1.0-4.8) 12/18/20 07:58 Monocytes # 0.5 k/uL (0-1.0) 12/18/20 07:58 Eosinophils # 0.1 k/uL (0-0.7) 12/18/20 07:58 Basophils # 0.1 k/uL (0-0.2) 12/18/20 07:58 Sodium 140 mmol/L (137-145) 12/18/20 07:58 Potassium 4.5 mmol/L (3.5-5.1) 12/18/20 07:58 Chloride 106 mmol/L (98-107) 12/18/20 07:58 Carbon Dioxide 28 mmol/L (22-30) 12/18/20 07:58 Anion Gap 6 mmol/L 12/18/20 07:58 BUN 10 mg/dL (9-20) 12/18/20 07:58 Creatinine 1.05 mg/dL (0.66-1.25) 12/18/20 07:58 Est GFR (CKD-EPI)AfAm >90 (>60 ml/min/1.73 sqM) 12/18/20 07:58 Est GFR (CKD-EPI)NonAf >90 (>60 ml/min/1.73 sqM) 12/18/20 07:58 Glucose 88 mg/dL (74-99) 12/18/20 07:[address] Glu mg/dL 105 12/18/20 07:58 Hemoglobin A1c 5.3 % (4.0-6.0) 12/18/20 07:58 Calcium 9.7 mg/dL (8.4-10.2) 12/18/20 07:58 Total Bilirubin 0.6 mg/dL (0.2-1.3) 12/18/20 07:58 AST 26 U/L (17-59) 12/18/20 07:58 ALT 21 U/L (4-49) 12/18/20 07:58 Alkaline Phosphatase 39 U/L (38-126) 12/18/20 07:58 Total Protein 6.4 g/dL (6.3-8.2) 12/18/20 07:58 Albumin 3.9 g/dL (3.5-5.0) 12/18/20 07:58 Triglycerides 85.90 mg/dL (0.00-149.00) 12/18/20 07:58 Cholesterol 164.00 mg/dL (0.00-200.00) 12/18/20 07:58 LDL Cholesterol, Calc 109.2 mg/dL (0.0-131.0) 12/18/20 07:58 VLDL Cholesterol, Calc 17.18 mg/dL (5.00-40.00) 12/18/20 07:58 HDL Cholesterol 37.60 mg/dL (40.00-60.00) L 12/18/20 07:58 Cholesterol/HDL Ratio 4.36 Ratio 12/18/20 07:58 TSH 1.250 mIU/L (0.465-4.680) 12/18/20 07:58 Urine Color Yellow 12/18/20 Unknown Urine Appearance Clear (Clear) 12/18/20 Unknown Urine pH 6.0 (5.0-8.0) 12/18/20 Unknown Ur Specific Lucas 1.028 (1.001-1.035) 12/18/20 Unknown Urine Protein Trace (Negative) H 12/18/20 Unknown Urine Glucose (UA) Negative (Negative) 12/18/20 Unknown Urine Ketones Trace (Negative) H 12/18/20 Unknown Urine Blood Negative (Negative) 12/18/20 Unknown Urine Nitrite Negative (Negative) 12/18/20 Unknown Urine Bilirubin Negative (Negative) 12/18/20 Unknown Urine Urobilinogen <2.0 mg/dL (<2.0) 12/18/20 Unknown Ur Leukocyte Esterase Negative (Negative) 12/18/20 Unknown Urine Opiates Screen Not Detected (NotDetected) 12/17/20 16:06 Ur Oxycodone Screen Not Detected (NotDetected) 12/17/20 16:06 Urine Methadone Screen Not Detected (NotDetected) 12/17/20 16:06 Ur Propoxyphene Screen Not Detected (NotDetected) 12/17/20 16:06 Ur Barbiturates Screen Not Detected (NotDetected) 12/17/20 16:06 U Tricyclic Antidepress Not Detected (NotDetected) 12/17/20 16:06 Ur Phencyclidine Scrn Not Detected (NotDetected) 12/17/20 16:06 Ur Amphetamines Screen Not Detected (NotDetected) 12/17/20 16:06 U Methamphetamines Scrn Not Detected (NotDetected) 12/17/20 16:06 U Benzodiazepines Scrn Not Detected (NotDetected) 12/17/20 16:06 Urine Cocaine Screen Not Detected (NotDetected) 12/17/20 16:06 U Marijuana (THC) Screen Detected (NotDetected) H 12/17/20 16:06 Coronavirus (PCR) Not Detected (Not Detectd) 12/17/20 16:06 Patient Condition at Discharge: Stable Plan - Discharge Summary Discharge Rx Participant: No New Discharge Prescriptions: New Mirtazapine [Remeron] 15 mg PO HS 30 Days tab ARIPiprazole [Abilify] 10 mg PO HS 30 Days tab SUMAtriptan succinate [Imitrex] 25 mg PO BID PRN 7 Days tab PRN Reason: Migraine Headache Discontinued Naproxen 500 mg PO BID PRN PRN Reason: Pain SUMAtriptan SUCCINATE [Imitrex] 100 mg PO Q12H PRN PRN Reason: Migraine Headache Galcanezumab-Gnlm [Emgality Pen] 120 mg SQ Q30D ARIPiprazole [Abilify] 5 mg PO DAILY ARIPiprazole [Abilify] 20 mg PO HS LORazepam [Ativan] 1 mg PO BID PRN PRN Reason: Anxiety Discharge Medication List ARIPiprazole [Abilify] 10 mg PO HS 30 Days tab 12/20/20 [Rx] Mirtazapine [Remeron] 15 mg PO HS 30 Days tab 12/20/20 [Rx] SUMAtriptan succinate [Imitrex] 25 mg PO BID PRN 7 Days tab 12/20/20 [Rx] Follow up Appointment(s)/Referral(s): [facility] [Outside] - 12/22/20 3:00 pm (Cam) Shagufta Aaron MD [Primary Care Provider] - 1-2 days Patient Instructions/Handouts: Depression (DC) Activity/Diet/Wound Care/Special Instructions: Activity and diet as tolerated. Avoid the use of street drugs and alcohol. Take all medications as prescribed. When you are in need of refills on your medications please contact your medical provider and/or outpatient psychiatrist to have this done. Please go to scheduled outpatient appointment for aftercare treatment. If symptoms return or become worse, call the crisis line at and/or go to the nearest emergency room for evaluation. Discharge Disposition: HOME SELF-CARE
[2020-12-20 14:05] LABS: Urine Barbiturate Negative (Negative); Urine Cocaine Negative (Negative); Urine Methadone Negative (Negative); Urine Opiates Negative (Negative); Urine Phencyclidine Negative (Negative)
== END 2020-12-20 12:18 | disposition home or self-care (01) | DRG 885 ==
LOC: EC 12:34 → 3MHU 17:53
PROVIDERS: ADMIT Psychiatry & Neurology Psychiatry; ATTEND Psychiatry & Neurology Psychiatry
DX: F33.3 Major depressive disorder, recurrent, severe with psychotic symptoms (principal); R45.851 Suicidal ideations; R44.0 Auditory hallucinations; Z20.822 Contact with and (suspected) exposure to COVID-19; F41.9 Anxiety disorder, unspecified; F17.210 Nicotine dependence, cigarettes, uncomplicated; F12.10 Cannabis abuse, uncomplicated; E78.5 Hyperlipidemia, unspecified; I10 Essential (primary) hypertension; Z79.899 Other long term (current) drug therapy; Z91.14 Patient's other noncompliance with medication regimen; Z91.5 Personal history of self-harm; G43.909 Migraine, unspecified, not intractable, without status migrainosus
CPT/HCPCS: 80053; 80061; 80306; 81003; 82075; 83036; 84443; 85025; 87635; 99285

== ENCOUNTER 2021-11-24 12:37 | Emergency (ER) | payer MEDICARE, OTHER ==
[2021-11-24] MEDS ORDERED: RABIES VACCINE (PCEC) 2.5 UNIT KIT IM ONE (13:43)
[2021-11-24] MEDS ORDERED: RABIES IMM GLOB 300 UNIT/2 ML VIAL IM ONE (13:43)
[2021-11-24] MEDS ORDERED: DIPH,PERTUS(ACELL)TETVAC-LF 0.5 ML VIAL IM ONE (13:47)
--- NOTE | 2021-11-24 13:49 | ED ---
General Adult HPI - General Chief complaint: Animal Bite Stated complaint: Arm lac Time Seen by Provider: 11/24/21 12:50 Source: patient Mode of arrival: ambulatory Limitations: no limitations - History of Present Illness Initial comments: Dictation was produced using [employer] dictation software. please excuse any grammatical, word or spelling errors. Chief Complaint: 41-year-old male presents to emergency department after a dog bite History of Present Illness: he is a 41-year-old male presents to emergency department after animal bite. 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 States that it looked like a pitbull. Event occurred proximally one to 2 hour prior to arrival. Patient states that while he was trying out this man the dog bit him in his right forearm. Denies any numbness to her seizures to the right upper extremity. Denies any weaknesses to blind teacher strength or finger function. After being attacked by the dog dog ran away. He does not know his dog that was. The ROS documented in this emergency department record has been reviewed and confirmed by me. Those systems with pertinent positive or negative responses have been documented in the HPI. All other systems are other negative and/or noncontributory. PHYSICAL EXAM: General Impression: Alert and oriented x3, not in acute distress HEENT: Normocephalic atraumatic, extra-ocular movements intact, pupils equal and reactive to light bilaterally, mucous membranes moist. Cardiovascular: Heart regular rate and rhythm Chest: Able to complete full sentences, no retractions, no tachypnea Abdomen: abdomen soft, non-tender, non-distended, no organomegaly Right upper extremity: 3 cm laceration with exposed fat tissue to the right anterior forearm. No exposed tendon. Neurovascularly intact, no deficits with finger and hand function Musculoskeletal: Pulses present and equal in all extremities, no peripheral edema Motor: no focal deficits noted Neurological: CN II-XII grossly intact, no focal motor or sensory deficits noted Skin: Intact with no visualized rashes Psych: Normal affect and mood ED course: 33-year-old male presents with dog bite. He has a dermal laceration. There is no tendon injury. Vital signs upon arrival are within acceptable limits. Wound was gaping. Wound edges were loosely approximated however still left open. Patient given rabies prophylaxis. He is immunocompetent and nonvaccinated. Immunoglobulin was injected around the wound. Patient is given vaccine. Tetanus updated. Patient instructed to return to the emergency department for serial rabies vaccines in 3 days, 7 days and 14 days. Antibiotic sent to pharmacy. - Related Data Previous Rx's Medication Instructions Recorded ARIPiprazole [Abilify] 10 mg PO HS 30 Days tab 12/20/20 Mirtazapine [Remeron] 15 mg PO HS 30 Days tab 12/20/20 SUMAtriptan succinate [Imitrex] 25 mg PO BID PRN 7 Days tab 12/20/20 Amoxic-Pot Clav 875-125Mg 1 tab PO BID 5 Days #10 tab 11/24/21 [Augmentin 875-125] Allergies Allergy/AdvReac Type Severity Reaction Status Date / Time No Known Allergies Allergy Verified 11/24/21 12:41 Review of Systems ROS Statement: Those systems with pertinent positive or pertinent negative responses have been documented in the HPI. ROS Other: All systems not noted in ROS Statement are negative. Past Medical History Past Medical History: Hyperlipidemia, Hypertension Additional Past Medical History / Comment(s): migraine History of Any Multi-Drug Resistant Organisms: None Reported Additional Past Surgical History / Comment(s): TRAUMA TO THROAT, REPAIR COMPLETED Past Psychological History: Anxiety, Bipolar Smoking Status: Current every day smoker Past Alcohol Use History: None Reported Past Drug Use History: Marijuana General Exam Limitations: no limitations Course Vital Signs 11/24/21 12:39 Temperature 98 F Pulse Rate 84 Respiratory 20 Rate Blood Pressure 145/102 O2 Sat by Pulse 99 Oximetry Disposition Clinical Impression: Bite by animal, Dog bite Disposition: HOME SELF-CARE Condition: Fair Instructions (If sedation given, give patient instructions): Animal Bite (ED) Additional Instructions: report to the ED for serial IM injections Rabies vaccine (human diploid cell vaccine) 1mL IM on days: 0, 3, 7, 14 suture removal in 10 days Prescriptions: Amoxic-Pot Clav 875-125Mg [Augmentin 875-125] 1 tab PO BID 5 Days #10 tab Is patient prescribed a controlled substance at d/c from ED?: No Referrals: Shagufta Aaron MD [Primary Care Provider] - 1-2 days Time of Disposition: 15:00
[2021-11-24] MEDS ORDERED: LIDOCAINE 1%-EPI 1:100,000 20 ML VIAL SQ STA (14:11)
[2021-11-24 15:23] VITALS: BP 119/77; PULSE 62; RESP 18; TEMP 98.7
== END 2021-11-24 15:23 | disposition home or self-care (01) ==
LOC: EC 12:37
DX: S51.851A Open bite of right forearm, initial encounter (principal); E78.5 Hyperlipidemia, unspecified; I10 Essential (primary) hypertension; F17.200 Nicotine dependence, unspecified, uncomplicated; Z79.899 Other long term (current) drug therapy; Z23 Encounter for immunization; W54.0XXA Bitten by dog, initial encounter
CPT/HCPCS: 90377; 90471; 90472; 90675; 90715; 96372; 99282

== ENCOUNTER 2024-03-14 18:15 | Inpatient (IN) | payer MEDICARE, MEDICAID ==
--- NOTE | 2024-03-14 18:57 | ED ---
General Adult HPI - General Chief complaint: Psychiatric Symptoms Stated complaint: petition Time Seen by Provider: 03/14/24 18:25 Source: patient, police, RN notes reviewed Mode of arrival: ambulatory Limitations: no limitations - History of Present Illness Initial comments: Patient is a 43-year-old male present to the emergency department with concerns for depression. Symptoms have worsened over the last couple months, problems with his significant other. Patient also has thoughts of overdosing on his medication. No homicidal thoughts. Patient has not been eating or drinking well. Patient is sleeping normally. No alcohol use. No hallucinations. Patient did run out of his Ativan 1 or 2 weeks ago. Patient otherwise has been taking his medications as directed. - Related Data Previous Rx's Medication Instructions Recorded ARIPiprazole [Abilify] 10 mg PO HS 30 Days tab 12/20/20 Mirtazapine [Remeron] 15 mg PO HS 30 Days tab 12/20/20 SUMAtriptan succinate [Imitrex] 25 mg PO BID PRN 7 Days tab 12/20/20 Amoxic-Pot Clav 875-125Mg 1 tab PO BID 5 Days #10 tab 11/24/21 [Augmentin 875-125] Allergies Allergy/AdvReac Type Severity Reaction Status Date / Time No Known Allergies Allergy Verified 03/14/24 18:20 Review of Systems ROS Statement: Those systems with pertinent positive or pertinent negative responses have been documented in the HPI. ROS Other: All systems not noted in ROS Statement are negative. Constitutional: Denies: fever ENT: Denies: ear pain Respiratory: Denies: dyspnea Cardiovascular: Denies: chest pain Gastrointestinal: Denies: abdominal pain Musculoskeletal: Denies: back pain Neurological: Denies: headache Psychiatric: Reports: depression, suicidal thoughts. Denies: auditory hallucinations, visual hallucinations, homicidal thoughts Past Medical History Past Medical History: Hyperlipidemia, Hypertension Additional Past Medical History / Comment(s): migraine. History of Any Multi-Drug Resistant Organisms: None Reported Additional Past Surgical History / Comment(s): TRAUMA TO THROAT, REPAIR COMPLETED Past Anesthesia/Blood Transfusion Reactions: No Reported Reaction Past Psychological History: Anxiety, Bipolar Smoking Status: Current every day smoker Past Alcohol Use History: None Reported Past Drug Use History: Marijuana General Exam Limitations: no limitations General appearance: alert, in no apparent distress Head exam: Present: normocephalic Eye exam: Present: normal appearance Neck exam: Present: normal inspection Respiratory exam: Present: normal lung sounds bilaterally Cardiovascular Exam: Present: regular rate, normal rhythm GI/Abdominal exam: Present: soft. Absent: tenderness, guarding Extremities exam: Present: normal inspection Neurological exam: Present: alert Psychiatric exam: Present: depressed Skin exam: Present: normal color Course Vital Signs 03/14/24 18:20 Temperature 98.5 F Pulse Rate 94 Respiratory 18 Rate Blood Pressure 137/93 O2 Sat by Pulse 99 Oximetry Medical Decision Making - Medical Decision Making Was pt. sent in by a medical professional or institution (, PA, CLOTH COVERER, urgent care, hospital, or shelter...) When possible be specific @ -No Did you speak to anyone other than the patient for history (EMS, parent, family, police, friend...)? What history was obtained from this source @ -No Did you review nursing and triage notes (agree or disagree)? Why? @ -I reviewed and agree with nursing and triage notes Were old charts reviewed (outside hosp., previous admission, EMS record, old EKG, old radiological studies, urgent care reports/EKG's, shelter records)? Report findings @ -No old charts were reviewed Differential Diagnosis (chest pain, altered mental status, abdominal pain women, abdominal pain men, vaginal bleeding, weakness, fever, dyspnea, syncope, headache, dizziness, GI bleed, back pain, seizure, CVA, palpatations, mental health, musculoskeletal)? @ -Differential Mental Health Depression, anxiety, bipolar, psychosis, schizophrenia, borderline personality, situational depression, adjustment disorder, behavioral disorder, brain tumor, malingering, substance abuse, encephalopathy, medication reaction, dementia, hypothyroidism, degenerative neurologic disorder, lupus.... This is not meant to be all-inclusive list EKG interpreted by me (3pts min.). @ -As above X-rays interpreted by me (1pt min.). @ -None done CT interpreted by me (1pt min.). @ -None done U/S interpreted by me (1pt. min.). @ -None done What testing was considered but not performed or refused? (CT, X-rays, U/S, labs)? Why? @ -None What meds were considered but not given or refused? Why? @ -None Did you discuss the management of the patient with other professionals (professionals i.e. , PA, CLOTH COVERER, lab, RT, psych nurse, certified social workers in health care, field coil winder, teacher, animal services officer, employment case manager)? Give summary @ -Case discussed with EPS nurse with plans for psychiatric admission Was smoking cessation discussed for >3mins.? @ -No Was critical care preformed (if so, how long)? @ -No Were there social determinants of health that impacted care today? How? (Homelessness, low income, unemployed, alcoholism, drug addiction, transportation, low edu. Level, literacy, decrease access to med. care, care home, rehab)? @ -No Was there de-escalation of care discussed even if they declined (Discuss DNR or withdrawal of care, Hospice)? DNR status @ -No What co-morbidities impacted this encounter? (DM, HTN, Smoking, COPD, CAD, Cancer, CVA, ARF, Chemo, Hep., AIDS, mental health diagnosis, sleep apnea, morbid obesity)? @ -History of depression Was patient admitted / discharged? Hospital course, mention meds given and route, prescriptions, significant lab abnormalities, going to OR and other pertinent info. @ -Patient presents with depression and suicidal ideation with plan. Patient to be admitted for psychiatric care Undiagnosed new problem with uncertain prognosis? @ -No Drug Therapy requiring intensive monitoring for toxicity (Heparin, Nitro, Insulin, Cardizem)? @ -No Were any procedures done? @ -No Diagnosis/symptom? @ -Depression, suicidal ideation Acute, or Chronic, or Acute on Chronic? @ -Acute, acute Uncomplicated (without systemic symptoms) or Complicated (systemic symptoms)? @ -Default Side effects of treatment? @ -No Exacerbation, Progression, or Severe Exacerbation? @ -No Poses a threat to life or bodily function? How? (Chest pain, USA, NC, pneumonia, PE, COPD, DKA, ARF, appy, cholecystitis, CVA, Diverticulitis, Homicidal, Suicidal, threat to staff... and all critical care pts) @ -No - Lab Data Lab Results 03/14/24 Range/Units 21:43 Urine Opiates Screen Not Detected (NotDetected) Ur Oxycodone Screen Not Detected (NotDetected) Urine Methadone Screen Not Detected (NotDetected) Ur Barbiturates Screen Detected H (NotDetected) U Tricyclic Antidepress Not Detected (NotDetected) Ur Phencyclidine Scrn Not Detected (NotDetected) Ur Amphetamines Screen Not Detected (NotDetected) U Methamphetamines Scrn Not Detected (NotDetected) U Benzodiazepines Scrn Not Detected (NotDetected) Urine Cocaine Screen Not Detected (NotDetected) U Marijuana (THC) Screen Detected H (NotDetected) Disposition Clinical Impression: Suicidal ideation, Depression Disposition: TRANSFER TO PSYCH HOSP/UNIT Is patient prescribed a controlled substance at d/c from ED?: No Referrals: Shagufta Aaron MD [Primary Care Provider] - 1-2 days Time of Disposition: 22:38
[2024-03-14 22:17] LABS: Amphetamine Screen,Urine Not Detected (NotDetected); Barbiturate Screen,Urine Detected (NotDetected); Benzodiazepines Screen,Urine Not Detected (NotDetected); Cocaine Screen,Urine Not Detected (NotDetected); Methadone Screen, Urine Not Detected (NotDetected); Opiate Screen,Urine Not Detected (NotDetected); Oxycodone Screen, Urine Not Detected (NotDetected); Phencyclidine Screen,Urine Not Detected (NotDetected); Tricyclic Antidepressant,Urine Not Detected (NotDetected); Urn Cannabinoid Scrn Detected (NotDetected)
[2024-03-14] MEDS ORDERED: HALOPERIDOL LACTATE 5 MG/ML 1 ML VIAL IM PRN (23:29)
[2024-03-14] MEDS ORDERED: MAG HYDROX/AL HYDROX/SIMETH 355 ML BOTTLE PO PRN (23:29)
[2024-03-14] MEDS ORDERED: LORazepam 2 MG/ML INJ IM PRN (23:29)
[2024-03-14] MEDS ORDERED: MAGNESIUM HYDROXIDE 2,400 MG/30 ML CUP PO PRN (23:29)
[2024-03-14] MEDS ORDERED: IBUPROFEN 600 MG TAB PO PRN (23:29)
[2024-03-14] MEDS ORDERED: haloperidoL 5 MG TAB PO PRN (23:29)
[2024-03-14] MEDS ORDERED: LORazepam 1 MG TAB PO PRN (23:29)
[2024-03-15] MEDS ORDERED: SUMAtriptan succinate 25 MG TAB PO PRN (01:00)
[2024-03-15] MEDS: LORazepam 1 MG TAB PO PRN (01:11)
[2024-03-15] MEDS: MIRTAZAPINE 15 MG TAB PO SCH (01:11)
[2024-03-15 03:46] VITALS: RESP 16
[2024-03-15 06:40] LABS: Basophils # (A) 0.1 k/uL (0-0.2); Basophils % (A) 1 %; Eosinophils # (A) 0.2 k/uL (0-0.7); Eosinophils % (A) 3 %; HCT 39.1 % (39.0-53.0); Lymphocytes % (A) 33 %; MCH 29.4 pg (25.0-35.0); MCHC 33.3 g/dL (31.0-37.0); MCV 88.4 fL (80.0-100.0); Mean Platelet Volume 8.6; Monocytes # (A) 0.4 k/uL (0-1.0); Monocytes % (A) 7 %; Neutrophils # (A) 3.2 k/uL (1.3-7.7); Neutrophils % (A) 55 %; Platelet Count 219 k/uL (150-450); RBC 4.42 m/uL (4.30-5.90); RDW 14.4 % (11.5-15.5); WBC 5.9 k/uL (3.8-10.6)
[2024-03-15 07:46] LABS: ALT 12 U/L (4-49); AST 20 U/L (17-59); African American GFR (CKD) >90 (>60 ml/min/1.73 sqM); Albumin 3.8 g/dL (3.5-5.0); Alkaline Phosphatase 48 U/L (38-126); Anion Gap 8 mmol/L; Blood Urea Nitrogen 19 mg/dL (9-20); Calcium 9.4 mg/dL (8.4-10.2); Carbon Dioxide 22 mmol/L (22-30); Chloride 109 mmol/L (98-107); Glucose 85 mg/dL (74-99); Non-African American GFR(CKD) 87 (>60 ml/min/1.73 sqM); Potassium 3.8 mmol/L (3.5-5.1); Sodium 139 mmol/L (137-145); Total Bilirubin 0.4 mg/dL (0.2-1.3); Total Protein 6.2 g/dL (6.3-8.2)
[2024-03-15] MEDS: NICOTINE 14MG/24HR PATCH TRANSDERM SCH (08:06)
[2024-03-15 09:55] LABS: Appearance,Urine Clear (Clear); Bilirubin,Urine Negative (Negative); Blood,Urine Negative (Negative); Color,Urine Yellow; Glucose,Urine (UA) Negative (Negative); Ketones,Urine Negative (Negative); Leukocyte Esterase,Urine Negative (Negative); Nitrite,Urine Negative (Negative); Protein,Urine Trace (Negative); Specific Gravity,Urine 1.019 (1.001-1.035)
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
--- NOTE | 2024-03-15 14:25 | P.MDCNMH ---
History of Present Illness H&P Date: 03/15/24 History of present illness; patient 43-year-old gentleman with past medical history significant for depression presented the ER for worsening depression. Patient has been going through a lot of social stressors at home, was having thoughts of hurting himself. Patient a plan to overdose on his medications. Patient denies any auditory or visual elucidation. Patient denies any homicidal thoughts. Because of his worsening depression, patient came to the ER Initial lab work done in the ER showed WBC 5.9, hemoglobin 13, platelet count 1 9, sodium 9, potassium 3.8, BUN 19, creatinine 1.07, glucose 85 AST 20, ALT 12 UA negative for infection Urine drug screen positive for barbiturates, marijuana COVID-19 not detected Patient admitted to inpatient psych REVIEW OF SYSTEMS: CONSTITUTIONAL: No fever, no malaise, no fatigue. HEENT: No recent visual problems or hearing problems. Denied any sore throat. CARDIOVASCULAR: No chest pain, orthopnea, PND, no palpitations, no syncope. PULMONARY: No shortness of breath, no cough, no hemoptysis. GASTROINTESTINAL: No diarrhea, no nausea, no vomiting, no abdominal pain. NEUROLOGICAL: No headaches, no weakness, no numbness. HEMATOLOGICAL: Denies any bleeding or petechiae. GENITOURINARY: Denies any burning micturition, frequency, or urgency. MUSCULOSKELETAL/RHEUMATOLOGICAL: Denies any joint pain, swelling, or any muscle pain. ENDOCRINE: Denies any polyuria or polydipsia. The rest of the 14-point review of systems is negative. PHYSICAL EXAMINATION: GENERAL: The patient is alert and oriented x3, not in any acute distress. Well developed, well nourished. HEENT: Pupils are round and equally reacting to light. EOMI. No scleral icterus. No conjunctival pallor. Normocephalic, atraumatic. No pharyngeal erythema. No thyromegaly. CARDIOVASCULAR: S1 and S2 present. No murmurs, rubs, or gallops. PULMONARY: Chest is clear to auscultation, no wheezing or crackles. ABDOMEN: Soft, nontender, nondistended, normoactive bowel sounds. No palpable organomegaly. MUSCULOSKELETAL: No joint swelling or deformity. EXTREMITIES: No cyanosis, clubbing, or pedal edema. NEUROLOGICAL: Gross neurological examination did not reveal any focal deficits. SKIN: No rashes. Assessment and plan Major depression suicidal thoughts Tobacco addiction Monitor vital signs Elopement precautions Suicide precautions Continue psych meds per psychiatry team Labs and medication were reviewed.. Continue same treatment. Continue with symptomatic treatment. Resume home medication. Monitor labs and vitals. DVT and GI prophylaxis. Further recommendations as per clinical course of the patient Dictation was produced using [employer] dictation software. please excuse any grammatical, word or spelling errors. Past Medical History Past Medical History: Hyperlipidemia, Hypertension Additional Past Medical History / Comment(s): migraine. History of Any Multi-Drug Resistant Organisms: None Reported Additional Past Surgical History / Comment(s): TRAUMA TO THROAT, REPAIR COMPLETED Past Anesthesia/Blood Transfusion Reactions: No Reported Reaction Smoking Status: Current every day smoker Medications and Allergies Home Medications Medication Instructions Recorded Confirmed Type ARIPiprazole [Abilify] 10 mg PO HS 30 Days tab 12/20/20 12/09/21 Rx Mirtazapine [Remeron] 15 mg PO HS 30 Days tab 12/20/20 03/15/24 Rx SUMAtriptan succinate [Imitrex] 25 mg PO BID PRN 7 Days tab 12/20/20 03/15/24 Rx Amoxic-Pot Clav 875-125Mg 1 tab PO BID 5 Days #10 tab 11/24/21 12/09/21 Rx [Augmentin 875-125] Allergies Allergy/AdvReac Type Severity Reaction Status Date / Time No Known Allergies Allergy Verified 03/14/24 18:20 Physical Exam Vitals: Vital Signs Temp Pulse Pulse Resp BP BP Pulse Ox 03/15/24 03:38 97.7 F 57 L 16 117/80 98 03/14/24 18:20 98.5 F 94 18 137/93 99 Intake and Output 03/14/24 03/15/24 03/15/24 22:59 06:59 14:59 Other: Weight 68.039 kg 68.039 kg Cranial Nerve Examination - Cranial Nerves Cranial Nerve II- Optic: Intact (Cranial nerves II to XII intact) Cranial Nerve III- Oculomotor: Intact Cranial Nerve IV- Trochlear: Intact Cranial Nerve V- Trigeminal: Intact Cranial Nerve - Abducens: Intact Cranial Nerve VII- Facial: Intact Cranial Nerve VIII- Auditory: Intact Cranial Nerve IX- Glossopharyngeal: Intact Cranial Nerve X- Vagus: Intact Cranial Nerve XI- Accessory: Intact Cranial Nerve XII- Hypoglossal: Intact Results CBC & Chem 7: 03/15/24 06:19 03/15/24 06:19 Labs: Abnormal Lab Results - Last 24 Hours (Table) 03/14/24 03/15/24 03/15/24 Range/Units 21:43 06:19 06:45 Chloride 109 H (98-107) mmol/L Total Protein 6.2 L (6.3-8.2) g/dL Urine Protein Trace H (Negative) Ur Barbiturates Screen Detected H (NotDetected) U Marijuana (THC) Screen Detected H (NotDetected)
[2024-03-15] MEDS: hydrOXYzine pamoate 25 MG CAP PO PRN (14:30)
[2024-03-15] MEDS: LORazepam 0.5 MG TAB PO PRN (15:51)
[2024-03-15] MEDS: OLANZapine 5 MG TAB PO SCH (20:48)
[2024-03-16] MEDS: OLANZapine ODT 5 MG TAB PO PRN (08:40)
--- NOTE | 2024-03-16 08:53 | P.PN ---
Progress Note - Text Progress Note Date: 03/16/24 Dictation was produced using [employer] dictation software. Please excuse any grammatical, word or spelling errors. Interval history: Patient was seen in his room and was directable and agreeable to speak with the screen writer in the office for psychiatric follow-up. The pt states that he is feeling better today, reported that he spoke with his counselor "Son" at [facility], he states that he gave her an update about what happened and reported that he is planning on meeting with her after discharge. He states that he feels much clear. He reported depression and anxiety to be at the low side, mainly related to not being able to spend the weekend with his children. He reported that he had racing thoughts last night mainly around being away from his children. He denied any current suicidal, self-harm or homicidal thoughts or behavior, denied any auditory or visual hallucination, paranoia or delusion. He reported that he slept well overnight and his appetite is coming back. He is compliant with his medication, denied any current side effects, denied any muscle stiffness, rigidity, abnormal movement, or drooling. Reported that he is getting along well with everyone in the unit, denied any aggression or agitation. MENTAL STATUS EXAM: General Appearance: Patient appears to be older than stated age is alert, directable, and attempts to cooperate. Patient appears to have poor hygiene and grooming. Behavior: Patient is seated without any agitated behavior. Speech: Patient's speech is fluent and nonpressured. Mood/Affect: Patient reports their mood is "better", affect is congruent and constricted. Suicidality/Homicidality: Patient denies having any homicidal ideation intent or plan. Denies any suicidal ideations intent or plan Perceptions: Patient denies any visual hallucinations and denies any auditory hallucinations Though content/process: There is no evidence of any delusional thought content and thought process is linear and goal-directed. Memory and concentration: AOX3, grossly intact for the purposes of this session. Can spell "WORLD" backwards Judgment and insight: poor IMPRESSIONS: Patient is a 43-year-old male with past psychiatric history of bipolar disorder, anxiety and depression present to the emergency department with concerns for suicidal ideation, and depression. Major depressive disorder, recurrent, moderate Cannabis use disorder Nicotine use disorder History of bipolar disorder PLAN: -Patient is admitted under voluntary status to [facility] for stabilization of psychiatric symptoms and safety. Patient signed adult voluntary form and medication consent and is placed in patient's chart. Patient continues to meet criteria for inpatient psychiatric admission for symptom stabilization and safety. Will continue to monitor ongoing response to treatment. Encouraged participation in milieu. -Medications : Continue Remeron 15 mg p.o. at bedtime Continue Zyprexa 5 mg p.o. at bedtime Zyprexa, hydroxyzine PRN for agitation/aggression, will keep Ativan 0.5 mg 3 times daily as needed with a plan to taper down -Patient was counselled on substance abuse and desired to cut back on use -Patient was informed of the risks, benefits and side effects of the medication and patient verbally consented to taking the medications. Patient signed med consent form and was placed in chart. -Internal Medicine consult to perform medical evaluation and physical. -NRT - nicotine patch -SW on board for discharge planning. Encourage patient to participate in groups to work on coping skills.
[2024-03-16] MEDS: ACETAMINOPHEN TAB 325 MG TAB PO PRN (18:25)
[2024-03-16 18:48] LABS: Influenza A Not Detected (Not Detectd); Influenza B Not Detected (Not Detectd); RSV Not Detected (Not Detectd)
[2024-03-17] MEDS ORDERED: OLANZapine 5 MG TAB PO PRN (11:55)
[2024-03-17] MEDS ORDERED: hydrOXYzine pamoate 25 MG CAP PO PRN (11:56)
--- NOTE | 2024-03-17 12:23 | P.PN ---
Progress Note - Text Progress Note Date: 03/17/24 Interval history: Patient was seen in his room and was directable and agreeable to speak with the underwriter in the office for psychiatric follow-up. The pt states that he is feeling better today. He spoke about his issues with his ex-girlfriend prior to coming into the hospital. States that she moved out and he does not trust her any longer. Claims that he was not thinking straight when he made those statements. Claims that he also "messed up" because it was one of his children's birthdays over the weekend. He was fairly focused on discharge, claiming that he is getting along with others taking his medications. Claims that he is feeling better today with regards to his mood and anxiety. Claims that he is sleeping throughout the night, fair appetite. He denied any current suicidal, self-harm or homicidal thoughts or behavior, denied any auditory or visual hallucination, paranoia or delusion. He did claim that the Zyprexa does help him stabilize his mood which she is happy with. denied any current side effects, denied any muscle stiffness, rigidity, abnormal movement, or drooling. MENTAL STATUS EXAM: General Appearance: Patient appears to be older than stated age is alert, directable, and attempts to cooperate. Patient appears to have improving hygiene and grooming. Behavior: Patient is seated without any agitated behavior. Fairly cooperative Speech: Patient's speech is fluent and nonpressured. Mood/Affect: Patient reports their mood is "good", affect is congruent and constricted. Improving mildly Suicidality/Homicidality: Patient denies having any homicidal ideation intent or plan. Denies any suicidal ideations intent or plan Perceptions: Patient denies any visual hallucinations and denies any auditory hallucinations Though content/process: There is no evidence of any delusional thought content and thought process is linear and goal-directed. Fairly focused on discharge Memory and concentration: AOX3, grossly intact for the purposes of this session. Can spell "WORLD" backwards Judgment and insight: Improving mildly IMPRESSIONS: Depressive disorder unspecified, rule out major depressive disorder versus bipolar disorder Cannabis use disorder Nicotine use disorder PLAN: -Patient is admitted under voluntary status to [facility] for stabilization of p sychiatric symptoms and safety. Patient signed adult voluntary form and medication consent and is placed in patient's chart. -Medications : Continue Remeron 15 mg p.o. at bedtime Continue Zyprexa 5 mg p.o. at bedtime Zyprexa, hydroxyzine PRN for agitation/aggression, Ativan 0.5 mg 3 times daily as needed for anxiety -NRT - nicotine patch -SW on board for discharge planning. Encourage patient to participate in groups to work on coping skills. Possible discharge tomorrow if patient is improving and has safe discharge plan.
[2024-03-18 07:13] VITALS: BP 124/74; PULSE 86; TEMP 98.4
--- NOTE | 2024-03-18 10:30 | P.DS ---
Providers Date of admission: 03/14/24 23:14 Expected date of discharge: 03/18/24 Attending physician: Juan A Alvarado MD Consults: 03/14/24 23:34 Consult Physician Routine Consulting Provider: Pattie Theodore Consult Reason/Comments: Medical managment Do you want consulting provider notified?: Yes Primary care physician: Shagufta Aaron - Discharge Diagnosis(es) (1) Depressive disorder Current Visit: Yes Status: Acute Priority: High (2) Cannabis use disorder Current Visit: Yes Status: Acute Priority: High (3) Nicotine dependence Current Visit: Yes Status: Acute Priority: Low Hospital Course: Admission HPI: Admission note was completed by aligner typewriter "patient is a 43-year-old male with past psychiatric history of bipolar disorder, anxiety and depression present to the emergency department with concerns for suicidal ideation, and depression. Patient presented to the hospital with concerns for depression, and suicidal ideation. Per chart review the pt symptoms have worsened over the last couple months, problems with his significant other. Patient also has thoughts of overd osing on his medication. No homicidal thoughts. Patient has not been eating or drinking well. Patient is sleeping normally. No alcohol use. No hallucinations. Patient did run out of his Ativan 1 or 2 weeks ago. Per report the patient came in 1 day ago with suicidal ideation, safety plan was placed and he was sent home, came in again yesterday by police after he endorsed suicidal ideation to his significant other who called the police, he has a history of overdose in the past. Upon evaluation in the unit he states that his ex-girl friend has been cheating on him for sometime, he states that he was upset and did not call anyone to help and was thinking about killing himself, he states that he was thinking about it and felt bad about having those thoughts since he has his kids. He states that he called his ex and told her that he will end his life if she is not coming back. He states that he should called his counselor or the hotline instead. He states that he has a plan to OD on his medication. He denied any current suicidal, self harm, or homicidal thoughts, intention or plan. He states that he attempted suicide in the past 2-3 times via overdose. He states that he was feeling well till last night, reported that he feels sad, depressed about being here, denied feeling hopeless, helpless at this time, however he felt that was yesterday. He reported that he sleeps good, around 8 hours per day, denied any time without sleep for days, he admitted to good appetite. He reported that he had racing thoughts last night, reported that he can get distracted easily, he reported that he can he impulsive, and act fast without thinking, reported that he was given a diagnosis with bipolar disorder in the past, long time ago, reported that he was fighting a lot with his ex- at that time, and not sleeping. He denied any other manic or hypomanic symptoms at this time. He denied any current AVH, paranoia or delusions. He reported that he was exposed to trauma as a child. Patient admits to using cannabis and tobacco. He denied using any other substances." Hospital course: Upon admission to the unit patient was directable and agreeable to commence treatment and signed adult voluntary form. Patient got along well with other patients on the unit and followed unit protocol. Patient was compliant with the medications and denied any side effects throughout hospital course. Patient was started on his home dose of Remeron 15 mg nightly for mood/sleep, Zyprexa was added 5 mg nightly for mood stabilization/sleep. Patient spoke of his stressors and engaged in therapy both group and individual. Patient was also seen by medical team for history and physical exam. Throughout the course of the hospitalization patient gradually improved with regards to mood, anxiety, s uicidal thoughts, sleep and became more future oriented with improved insight and judgment. On the day of discharge patient denied any suicidal or homicidal ideations intent or plan denied any auditory or visual hallucinations. Patient endorsed wanting to live for their health and family. The patient denied any access to guns or weapons. Patient denied any paranoia and did not endorse any delusions. Patient does have a significant history of substance abuse and was counseled on abstaining from all substances including alcohol and marijuana. Patient elected to do outpatient substance use treatment program through their outpatient provider.. Patient was also counseled on the medications and need for regular compliance and was encouraged to follow-up with their outpatient appointment for mental health and also for primary care. Prior to discharge a family meeting will be arranged by social media specialist to answer any questions and ensure safety upon discharge incuding making sure that guns/weapons are either removed from the home or locked away. Mental status exam: General Appearance: Patient appears to be thin, balding, stated age is alert, pleasant, and cooperative. Patient is in no acute distress and has improved hygiene and grooming Behavior: Patient is calmly seated without any agitated behavior. Speech: Patient's speech is fluent and nonpressured. Mood/Affect: Patient reports their mood is "good", affect is congruent and euthymic. Suicidality/Homicidality: Patient denies having any suicidal or homicidal ideation intent or plan. Perceptions: Patient denies any auditory or visual hallucinations. Though content/process: There is no evidence of any delusional thought content and thought process is linear and goal-directed. More future oriented Memory and concentration: AOX3, grossly intact for the purposes of this session. Can spell "WORLD" backwards correctly. Judgment and insight: improved with guarded prognosis Impression: Depressive disorder unspecified, rule out major depressive disorder versus bipolar disorder Cannabis use disorder Nicotine dependence Plan: -Continue with discharge today as patient has improved and stabilized psychiatrically and is not currently an imminent threat to themself and/or others. Patient will remain at chronically elevated risk for harm to self and/or others due to their impulsivity. -Continue medications: Remeron 15 mg nightly for mood/sleep, Zyprexa 5 mg nightly for mood stabilization/sleep, Vistaril 50 mg daily as needed for anxiety. -Patient was counseled on the need for medication compliance and appropriate follow-up at mental health and also primary care for medical issues. Patient verbalized understanding and agreed. -Social work to help coordinate patients discharge today. also to ensure safe home environment that guns/weapons are either removed from the home or locked away. Social work also to arrange for patients follow up appointments for psychiatric care along with follow up with primary care provider. -Patient counseled on abstaining from recreational drugs and marijuana and alcohol. Was informed/educated on the adverse effects on their physical and mental health. Patient verbally agreed and understood. -Patient was instructed to return to the hospital or seek immediate medical care if their psychiatric or medical symptoms do worsen or reoccur. INSERT DATA FORMATS Allergies Allergy/AdvReac Type Severity Reaction Status Date / Time No Known Allergies Allergy Verified 03/14/24 18:20 Laboratory Results WBC 5.9 k/uL (3.8-10.6) 03/15/24 06:19 RBC 4.42 m/uL (4.30-5.90) 03/15/24 06:19 Hgb 13.0 gm/dL (13.0-17.5) 03/15/24 06:19 Hct 39.1 % (39.0-53.0) 03/15/24 06:19 MCV 88.4 fL (80.0-100.0) 03/15/24 06:19 MCH 29.4 pg (25.0-35.0) 03/15/24 06:19 MCHC 33.3 g/dL (31.0-37.0) 03/15/24 06:19 RDW 14.4 % (11.5-15.5) 03/15/24 06:19 Plt Count 219 k/uL (150-450) 03/15/24 06:19 MPV 8.6 03/15/24 06:19 Neutrophils % 55 % 03/15/24 06:19 Lymphocytes % 33 % 03/15/24 06:19 Monocytes % 7 % 03/15/24 06:19 Eosinophils % 3 % 03/15/24 06:19 Basophils % 1 % 03/15/24 06:19 Neutrophils # 3.2 k/uL (1.3-7.7) 03/15/24 06:19 Lymphocytes # 2.0 k/uL (1.0-4.8) 03/15/24 06:19 Monocytes # 0.4 k/uL (0-1.0) 03/15/24 06:19 Eosinophils # 0.2 k/uL (0-0.7) 03/15/24 06:19 Basophils # 0.1 k/uL (0-0.2) 03/15/24 06:19 Sodium 139 mmol/L (137-145) 03/15/24 06:19 Potassium 3.8 mmol/L (3.5-5.1) 03/15/24 06:19 Chloride 109 mmol/L (98-107) H 03/15/24 06:19 Carbon Dioxide 22 mmol/L (22-30) 03/15/24 06:19 Anion Gap 8 mmol/L 03/15/24 06:19 BUN 19 mg/dL (9-20) 03/15/24 06:19 Creatinine 1.07 mg/dL (0.66-1.25) 03/15/24 06:19 Est GFR (CKD-EPI)AfAm >90 (>60 ml/min/1.73 sqM) 03/15/24 06:19 Est GFR (CKD-EPI)NonAf 87 (>60 ml/min/1.73 sqM) 03/15/24 06:19 Glucose 85 mg/dL (74-99) 03/15/24 06:[address] Glu mg/dL 103 mg/dL 03/15/24 06:19 Hemoglobin A1c 5.2 % (<=6.0) 03/15/24 06:19 Calcium 9.4 mg/dL (8.4-10.2) 03/15/24 06:19 Total Bilirubin 0.4 mg/dL (0.2-1.3) 03/15/24 06:19 AST 20 U/L (17-59) 03/15/24 06:19 ALT 12 U/L (4-49) 03/15/24 06:19 Alkaline Phosphatase 48 U/L (38-126) 03/15/24 06:19 Total Protein 6.2 g/dL (6.3-8.2) L 03/15/24 06:19 Albumin 3.8 g/dL (3.5-5.0) 03/15/24 06:19 TSH 1.900 mIU/L (0.465-4.680) 03/15/24 06:19 Urine Color Yellow 03/15/24 06:45 Urine Appearance Clear (Clear) 03/15/24 06:45 Urine pH 6.0 (5.0-8.0) 03/15/24 06:45 Ur Specific [place] 1.019 (1.001-1.035) 03/15/24 06:45 Urine Protein Trace (Negative) H 03/15/24 06:45 Urine Glucose (UA) Negative (Negative) 03/15/24 06:45 Urine Ketones Negative (Negative) 03/15/24 06:45 Urine Blood Negative (Negative) 03/15/24 06:45 Urine Nitrite Negative (Negative) 03/15/24 06:45 Urine Bilirubin Negative (Negative) 03/15/24 06:45 Urine Urobilinogen 4.0 mg/dL (<2.0) 03/15/24 06:45 Ur Leukocyte Esterase Negative (Negative) 03/15/24 06:45 Urine Opiates Screen Not Detected (NotDetected) 03/14/24 21:43 Ur Oxycodone Screen Not Detected (NotDetected) 03/14/24 21:43 Urine Methadone Screen Not Detected (NotDetected) 03/14/24 21:43 Ur Barbiturates Screen Detected (NotDetected) H 03/14/24 21:43 U Tricyclic Antidepress Not Detected (NotDetected) 03/14/24 21:43 Ur Phencyclidine Scrn Not Detected (NotDetected) 03/14/24 21:43 Ur Amphetamines Screen Not Detected (NotDetected) 03/14/24 21:43 U Methamphetamines Scrn Not Detected (NotDetected) 03/14/24 21:43 U Benzodiazepines Scrn Not Detected (NotDetected) 03/14/24 21:43 Urine Cocaine Screen Not Detected (NotDetected) 03/14/24 21:43 U Marijuana (THC) Screen Detected (NotDetected) H 03/14/24 21:43 Influenza Type A (PCR) Not Detected (Not Detectd) 03/16/24 17:50 Influenza Type B (PCR) Not Detected (Not Detectd) 03/16/24 17:50 RSV (PCR) Not Detected (Not Detectd) 03/16/24 17:50 SARS-CoV-2 (PCR) Not Detected (Not Detectd) 03/16/24 17:50 Vital Signs Temp 98.4 F 03/18/24 06:41 Pulse 86 03/18/24 06:41 Resp 16 03/18/24 06:41 BP 124/74 03/18/24 06:41 Pulse Ox 98 03/18/24 06:41 FiO2 Patient Condition at Discharge: Stable Plan - Discharge Summary Discharge Rx Participant: Yes New Discharge Prescriptions: New Nicotine 14Mg/24Hr Patch [Habitrol] 1 patch TRANSDERM DAILY patch OLANZapine [ZyPREXA] 5 mg PO HS 30 Days #30 tab Ibuprofen [Motrin] 600 mg PO Q6HR PRN tab PRN Reason: Moderate Pain (Scale 4 To 6) Acetaminophen Tab [Tylenol] 650 mg PO Q4HR PRN tab PRN Reason: Mild Pain (Scale 1 To 3) hydrOXYzine pamoate [Vistaril] 50 mg PO DAILY PRN 15 Days #30 cap PRN Reason: Anxiety Continue Mirtazapine [Remeron] 15 mg PO HS 30 Days #30 tab SUMAtriptan succinate [Imitrex] 25 mg PO BID PRN 7 Days tab PRN Reason: Migraine Headache Discontinued ARIPiprazole [Abilify] 10 mg PO HS 30 Days tab Amoxic-Pot Clav 875-125Mg [Augmentin 875-125] 1 tab PO BID 5 Days #10 tab Discharge Medication List SUMAtriptan succinate [Imitrex] 25 mg PO BID PRN 7 Days tab 12/20/20 [Rx] Acetaminophen Tab [Tylenol] 650 mg PO Q4HR PRN tab 03/18/24 [Rx] Ibuprofen [Motrin] 600 mg PO Q6HR PRN tab 03/18/24 [Rx] Mirtazapine [Remeron] 15 mg PO HS 30 Days #30 tab 03/18/24 [Rx] Nicotine 14Mg/24Hr Patch [Habitrol] 1 patch TRANSDERM DAILY patch 03/18/24 [Rx] OLANZapine [ZyPREXA] 5 mg PO HS 30 Days #30 tab 03/18/24 [Rx] hydrOXYzine pamoate [Vistaril] 50 mg PO DAILY PRN 15 Days #30 cap 03/18/24 [Rx] Follow up Appointment(s)/Referral(s): [facility] [Outside] - 03/20/24 9:00 am Shagufta Aaron MD [Primary Care Provider] - 1-2 days Activity/Diet/Wound Care/Special Instructions: [facility] Discharge Info Avoid the use of street drugs and alcohol. Take all medications as prescribed. When you are in need of refills on your medications, please contact your outpatient medical provider and/or outpatient psychiatrist. Please go to your scheduled outpatient appointments for aftercare treatment. If symptoms return or become worse, call the crisis line at or and/or visit the nearest emergency room for assistance. National Suicide and Crisis Lifeline - call or text 988 Discharge Disposition: HOME SELF-CARE
== END 2024-03-18 12:50 | disposition home or self-care (01) | DRG 885 ==
LOC: EC 18:15 → 3MHU 23:14
PROVIDERS: ADMIT Psychiatry & Neurology Psychiatry; ATTEND Psychiatry & Neurology Psychiatry
DX: F33.1 Major depressive disorder, recurrent, moderate (principal); R45.851 Suicidal ideations; F12.10 Cannabis abuse, uncomplicated; F17.210 Nicotine dependence, cigarettes, uncomplicated; F41.9 Anxiety disorder, unspecified; Z91.51 Personal history of suicidal behavior
CPT/HCPCS: 80053; 80306; 81003; 82075; 83036; 84443; 85025; 87635; 87636; 99285

== ENCOUNTER 2024-06-07 17:53 | Emergency (ER) | payer MEDICARE, OTHER ==
--- NOTE | 2024-06-07 18:49 | ED ---
Psych HPI - General Chief Complaint: Psychiatric Symptoms Stated Complaint: Mental health Time Seen by Provider: 06/07/24 18:00 Source: patient, RN notes reviewed Mode of arrival: ambulatory - History of Present Illness Initial Comments: 43-year-old male presenting for suicidal ideation. States he is very depressed because he is trying to take care of his girlfriend in [place] and is becoming frustrated and feeling hopeless that he is not able to help her. States that he was on the phone with her and became very frustrated and said that he might as well just kill himself. States this was a dumb thing to say and said this out of frustration. States his girlfriend called the police after the phone call to check up on the him. No medical complaints at this time. Denies homicidal ideation. - Related Data Previous Rx's Medication Instructions Recorded SUMAtriptan succinate [Imitrex] 25 mg PO BID PRN 7 Days tab 12/20/20 Acetaminophen Tab [Tylenol] 650 mg PO Q4HR PRN tab 03/18/24 Ibuprofen [Motrin] 600 mg PO Q6HR PRN tab 03/18/24 Mirtazapine [Remeron] 15 mg PO HS 30 Days #30 tab 03/18/24 Nicotine 14Mg/24Hr Patch [Habitrol] 1 patch TRANSDERM DAILY patch 03/18/24 OLANZapine [ZyPREXA] 5 mg PO HS 30 Days #30 tab 03/18/24 hydrOXYzine pamoate [Vistaril] 50 mg PO DAILY PRN 15 Days #30 cap 03/18/24 Allergies Allergy/AdvReac Type Severity Reaction Status Date / Time No Known Allergies Allergy Verified 06/07/24 17:58 Review of Systems ROS Statement: Those systems with pertinent positive or pertinent negative responses have been documented in the HPI. ROS Other: All systems not noted in ROS Statement are negative. Past Medical History Past Medical History: Hyperlipidemia, Hypertension Additional Past Medical History / Comment(s): migraine. History of Any Multi-Drug Resistant Organisms: None Reported Additional Past Surgical History / Comment(s): TRAUMA TO THROAT, REPAIR COM PLETED Past Anesthesia/Blood Transfusion Reactions: No Reported Reaction Past Psychological History: Anxiety, Bipolar Smoking Status: Current every day smoker General Exam Limitations: no limitations General appearance: alert, in no apparent distress Head exam: Present: atraumatic, normocephalic, normal inspection Eye exam: Present: normal appearance, PERRL, EOMI. Absent: scleral icterus, conjunctival injection, periorbital swelling Neurological exam: Present: alert, oriented X3 Psychiatric exam: Present: normal affect, normal mood, suicidal ideation. Absent: homicidal ideation Skin exam: Present: warm, dry, intact, normal color. Absent: rash Course Vital Signs 06/07/24 06/07/24 17:55 21:26 Temperature 98.1 F Pulse Rate 62 54 L Respiratory 18 18 Rate Blood Pressure 127/82 120/76 O2 Sat by Pulse 97 97 Oximetry Medical Decision Making - Medical Decision Making Was pt. sent in by a medical professional or institution (, PA, HR ADMINISTRATOR, urgent care, hospital, or care home...) When possible be specific @ -No Did you speak to anyone other than the patient for history (EMS, parent, family, police, friend...)? What history was obtained from this source @ -No Did you review nursing and triage notes (agree or disagree)? Why? @ -I reviewed and agree with nursing and triage notes Were old charts reviewed (outside hosp., previous admission, EMS record, old EKG, old radiological studies, urgent care reports/EKG's, care home records)? Report findings @ -No old charts were reviewed Differential Diagnosis (chest pain, altered mental status, abdominal pain women, abdominal pain men, vaginal bleeding, weakness, fever, dyspnea, syncope, headache, dizziness, GI bleed, back pain, seizure, CVA, palpatations, mental health, musculoskeletal)? @ -Differential Mental Health Depression, anxiety, bipolar, psychosis, schizophrenia, borderline personality, situational depression, adjustment disorder, behavioral disorder, brain tumor, malingering, substance abuse, encephalopathy, medication reaction, dementia, hypothyroidism, degenerative neurologic disorder, lupus.... This is not meant to be all-inclusive list EKG interpreted by me (3pts min.). @ -None X-rays interpreted by me (1pt min.). @ -None done CT interpreted by me (1pt min.). @ -None done U/S interpreted by me (1pt. min.). @ -None done What testing was considered but not performed or refused? (CT, X-rays, U/S, labs)? Why? @ -None What meds were considered but not given or refused? Why? @ -None Did you discuss the management of the patient with other professionals (professionals i.e. Dr., PA, HR ADMINISTRATOR, lab, RT, psych nurse, mental health social worker, interface developer, teacher, chairman and chief executive officer, case finisher)? Give summary @ -I spoke with Sima from [facility] who determines patient does not meet inpatient criteria at this time Was smoking cessation discussed for >3mins.? @ -No Was critical care preformed (if so, how long)? @ -No Were there social determinants of health that impacted care today? How? (Homelessness, low income, unemployed, alcoholism, drug addiction, transportation, low edu. Level, literacy, decrease access to med. care, [facility]ci, rehab)? @ -No Was there de-escalation of care discussed even if they declined (Discuss DNR or withdrawal of care, Hospice)? DNR status @ -No What co-morbidities impacted this encounter? (DM, HTN, Smoking, COPD, CAD, Cancer, CVA, ARF, Chemo, Hep., AIDS, mental health diagnosis, sleep apnea, morbid obesity)? @ -None Was patient admitted / discharged? Hospital course, mention meds given and route, prescriptions, significant lab abnormalities, going to OR and other pertinent info. @ - discharge. 43-year-old male presenting for suicidal comments. No medical complaints at this time. Patient is cleared to be seen by [facility]. I spoke with Sima from [facility] who determines patient does not meet inpatient criteria at this time for psychiatric hospitalization. Patient will be discharged with safety plan. Case was discussed with my ED attending Dr. Hyman. Undiagnosed new problem with uncertain prognosis? @ -No Drug Therapy requiring intensive monitoring for toxicity (Heparin, Nitro, Insulin, Cardizem)? @ -No Were any procedures done? @ -No Diagnosis/symptom? @ -Psychiatric evaluation Acute, or Chronic, or Acute on Chronic? @ -acute Uncomplicated (without systemic symptoms) or Complicated (systemic symptoms)? @ -Uncomplicated Side effects of treatment? @ -No Exacerbation, Progression, or Severe Exacerbation? @ -No Poses a threat to life or bodily function? How? (Chest pain, [place], [place], pneumonia, PE, COPD, DKA, ARF, appy, cholecystitis, CVA, Diverticulitis, Homicidal, Suicidal, threat to staff... and all critical care pts) @ -Unlikely at this time - Lab Data Lab Results 06/07/24 Range/Units 19:25 Urine Opiates Screen Not Detected (NotDetected) Ur Oxycodone Screen Not Detected (NotDetected) Urine Methadone Screen Not Detected (NotDetected) Ur Barbiturates Screen Detected H (NotDetected) U Tricyclic Antidepress Not Detected (NotDetected) Ur Phencyclidine Scrn Not Detected (NotDetected) Ur Amphetamines Screen Not Detected (NotDetected) U Methamphetamines Scrn Not Detected (NotDetected) U Benzodiazepines Scrn Not Detected (NotDetected) Urine Cocaine Screen Not Detected (NotDetected) U Marijuana (THC) Screen Detected H (NotDetected) Disposition Clinical Impression: Mental health problem Disposition: HOME SELF-CARE Condition: Stable Additional Instructions: Please return to the Emergency Department if symptoms worsen or any other concerns. Is patient prescribed a controlled substance at d/c from ED?: No Referrals: Shagufta Aaron MD [Primary Care Provider] - 1-2 days Time of Disposition: 22:20
[2024-06-07 20:50] LABS: Amphetamine Screen,Urine Not Detected (NotDetected); Barbiturate Screen,Urine Detected (NotDetected); Benzodiazepines Screen,Urine Not Detected (NotDetected); Cocaine Screen,Urine Not Detected (NotDetected); Methadone Screen, Urine Not Detected (NotDetected); Opiate Screen,Urine Not Detected (NotDetected); Oxycodone Screen, Urine Not Detected (NotDetected); Phencyclidine Screen,Urine Not Detected (NotDetected); Tricyclic Antidepressant,Urine Not Detected (NotDetected); Urn Cannabinoid Scrn Detected (NotDetected)
[2024-06-07 22:59] VITALS: BP 123/81; PULSE 77; RESP 16; TEMP 97.9
== END 2024-06-07 22:59 | disposition home or self-care (01) ==
LOC: EC 17:53
DX: Z13.30 Encounter for screening examination for mental health and behavioral disorders, unspecified (principal); F17.200 Nicotine dependence, unspecified, uncomplicated
CPT/HCPCS: 80306; 82075; 99285

== ENCOUNTER 2024-07-03 19:38 | Emergency (ER) | payer MEDICARE, OTHER ==
[2024-07-03 20:05] VITALS: RESP 18
--- NOTE | 2024-07-03 20:44 | ED ---
General Adult HPI - General Chief complaint: Upper Respiratory Infection Stated complaint: Weakness/Sore throat/Aches Time Seen by Provider: 07/03/24 20:05 Source: patient, RN notes reviewed Mode of arrival: ambulatory - History of Present Illness Initial comments: 44-year-old male presents emergency department for complaint of sore throat, chills, congestion over the past 2 to 3 days. Patient denies difficulty in breathing, heart palpitations, rhinorrhea, cough, headaches. - Related Data Previous Rx's Medication Instructions Recorded SUMAtriptan succinate [Imitrex] 25 mg PO BID PRN 7 Days tab 12/20/20 Acetaminophen Tab [Tylenol] 650 mg PO Q4HR PRN tab 03/18/24 Ibuprofen [Motrin] 600 mg PO Q6HR PRN tab 03/18/24 Mirtazapine [Remeron] 15 mg PO HS 30 Days #30 tab 03/18/24 Nicotine 14Mg/24Hr Patch [Habitrol] 1 patch TRANSDERM DAILY patch 03/18/24 OLANZapine [ZyPREXA] 5 mg PO HS 30 Days #30 tab 03/18/24 hydrOXYzine pamoate [Vistaril] 50 mg PO DAILY PRN 15 Days #30 cap 03/18/24 Allergies Allergy/AdvReac Type Severity Reaction Status Date / Time No Known Allergies Allergy Verified 07/03/24 20:05 Review of Systems ROS Statement: Those systems with pertinent positive or pertinent negative responses have been documented in the HPI. ROS Other: All systems not noted in ROS Statement are negative. Past Medical History Past Medical History: Hyperlipidemia, Hypertension Additional Past Medical History / Comment(s): migraine. History of Any Multi-Drug Resistant Organisms: None Reported Additional Past Surgical History / Comment(s): TRAUMA TO THROAT, REPAIR COMPLETED Past Anesthesia/Blood Transfusion Reactions: No Reported Reaction Past Psychological History: Anxiety, Bipolar Smoking Status: Current every day smoker General Exam General appearance: alert, in no apparent distress ENT exam: Present: normal exam, mucous membranes moist Expanded Throat exam: tonsillar erythema. negative: tonsillomegaly, R peritonsillar mass, L peritonsillar mass Neck exam: Present: normal inspection. Absent: tenderness, meningismus, lymphadenopathy Respiratory exam: Present: normal lung sounds bilaterally. Absent: respiratory distress, wheezes, rales, rhonchi, stridor Cardiovascular Exam: Present: regular rate, normal rhythm, normal heart sounds. Absent: systolic murmur, diastolic murmur, rubs, gallop, clicks GI/Abdominal exam: Present: soft, normal bowel sounds. Absent: distended, tenderness, guarding, rebound, rigid Skin exam: Present: warm, dry, intact, normal color. Absent: rash Course Vital Signs 07/03/24 07/03/24 20:01 22:21 Temperature 98.7 F 98.6 F Pulse Rate 67 74 Respiratory 18 18 Rate Blood Pressure 132/92 120/79 O2 Sat by Pulse 100 100 Oximetry Medical Decision Making - Medical Decision Making Was pt. sent in by a medical professional or institution (, PA, GRANULAR OPERATOR, urgent care, hospital, or longterm...) When possible be specific @ -No Did you speak to anyone other than the patient for history (EMS, parent, family, police, friend...)? What history was obtained from this source @ -No Did you review nursing and triage notes (agree or disagree)? Why? @ -I reviewed and agree with nursing and triage notes Were old charts reviewed (outside hosp., previous admission, EMS record, old EKG, old radiological studies, urgent care reports/EKG's, longterm records)? Report findings @ -No old charts were reviewed Differential Diagnosis (chest pain, altered mental status, abdominal pain women, abdominal pain men, vaginal bleeding, weakness, fever, dyspnea, syncope, headache, dizziness, GI bleed, back pain, seizure, CVA, palpatations, mental health, musculoskeletal)? @ -COVID 19, RSV, influenza, pneumonia, acute bronchitis, URI, this list is not all inclusive EKG interpreted by me (3pts min.). @ -None X-rays interpreted by me (1pt min.). @ -None done CT interpreted by me (1pt min.). @ -None done U/S interpreted by me (1pt. min.). @ -None done What testing was considered but not performed or refused? (CT, X-rays, U/S, labs)? Why? @ -None What meds were considered but not given or refused? Why? @ -None Did you discuss the management of the patient with other professionals (professionals i.e. , DOROTHY, GRANULAR OPERATOR, lab, RT, psych nurse, social services designee, highwall drill operator, teacher, precinct commanding officer, case fitter)? Give summary @ -No Was smoking cessation discussed for >3mins.? @ -No Was critical care preformed (if so, how long)? @ -No Were there social determinants of health that impacted care today? How? (Homelessness, low income, unemployed, alcoholism, drug addiction, transportation, low edu. Level, literacy, decrease access to med. care, residential, rehab)? @ -No Was there de-escalation of care discussed even if they declined (Discuss DNR or withdrawal of care, Hospice)? DNR status @ -No What co-morbidities impacted this encounter? (DM, HTN, Smoking, COPD, CAD, Cancer, CVA, ARF, Chemo, Hep., AIDS, mental health diagnosis, sleep apnea, morbid obesity)? @ -None Was patient admitted / discharged? Hospital course, mention meds given and route, prescriptions, significant lab abnormalities, going to OR and other pertinent info. @ -Discharge. 44 male presenting with sore throat and chills. Initial vitals are stable. Overall patient is well-appearing. There is mild posterior oropharynx erythema with no tonsillar exudates. Patient had with dose of Tylenol and viscous lidocaine. Viral testing is negative. Strep is negative. Symptoms likely secondary to viral pharyngitis. Supportive treatment discussed at bedside. Case discussed with Dr. Schroeder Undiagnosed new problem with uncertain prognosis? @ -No Drug Therapy requiring intensive monitoring for toxicity (Heparin, Nitro, Insulin, Cardizem)? @ -No Were any procedures done? @ -No Diagnosis/symptom? @ -Viral pharyngitis Acute, or Chronic, or Acute on Chronic? @ -Acute Uncomplicated (without systemic symptoms) or Complicated (systemic symptoms)? @ -Uncomplicated Side effects of treatment? @ -No Exacerbation, Progression, or Severe Exacerbation? @ -No Poses a threat to life or bodily function? How? (Chest pain, [place], [place], pneumonia, PE, COPD, DKA, ARF, appy, cholecystitis, CVA, Diverticulitis, Homicidal, Suicidal, threat to staff... and all critical care pts) @ -No - Lab Data Lab Results 07/03/24 07/03/24 Range/Units 20:20 21:00 Influenza Type A (PCR) Not Detected (Not Detectd) Influenza Type B (PCR) Not Detected (Not Detectd) RSV (PCR) Not Detected (Not Detectd) SARS-CoV-2 (PCR) Not Detected (Not Detectd) Group A Strep (PCR) NOT DETECTED (Not Detectd) Disposition Clinical Impression: Viral pharyngitis Disposition: HOME SELF-CARE Condition: Good Instructions (If sedation given, give patient instructions): Pharyngitis (ED) Additional Instructions: Please return to the Emergency Department if symptoms worsen or any other concerns. Is patient prescribed a controlled substance at d/c from ED?: No Referrals: Shagufta Aaron MD [Primary Care Provider] - 1-2 days Time of Disposition: 21:41
[2024-07-03] MEDS: ACETAMINOPHEN TAB 325 MG TAB PO STA (20:58)
[2024-07-03] MEDS: LIDOCAINE VISCOUS 2% 15 ML CUP PO ONE (21:05)
[2024-07-03 21:13] LABS: Influenza A Not Detected (Not Detectd); Influenza B Not Detected (Not Detectd); RSV Not Detected (Not Detectd)
[2024-07-03] MEDS ORDERED: dexAMETHasone 4 MG TAB PO STA (21:40)
[2024-07-03 22:23] VITALS: BP 120/79; PULSE 74; TEMP 98.6
== END 2024-07-03 22:23 | disposition home or self-care (01) ==
LOC: EC 19:38
DX: J02.8 Acute pharyngitis due to other specified organisms (principal); F17.200 Nicotine dependence, unspecified, uncomplicated
CPT/HCPCS: 87636; 87651; 99284; 99285